=== PATIENT | female | born 1950 | race Caucasian/White ===

== ENCOUNTER 2021-04-11 01:53 | Day surgery (SDC) | payer MEDICARE, SELFPAY ==
[2021-03-23 15:07] VITALS: BMI 18.1
[2021-04-11 07:37] VITALS: BP 142/67; PULSE 55; RESP 16; TEMP 35.7; O2SAT 100; BMI 16.8
[2021-04-11] MEDS: LACTATED RINGERS 1,000 ML 150 ML IV CONT (08:16)
--- NOTE | 2021-04-11 08:28 | WPDGICN ---
Assessment and Plan Assessment and plan (1) Change in bowel habit: Code(s): R19.4 - Change in bowel habit Status: Acute Assessment and Plan: Patient reports a change in her bowel habit more than a year ago. She has and not had a colonoscopy for 20 years. Plan is for screening colonoscopy at this time. Alteration in bowel habit is of uncertain nature. I would suggest trying fiber supplementation such as Metamucil on a daily basis. Further recommendations will be given after endoscopy. GI Consult Note Consult date/time: 04/11/21 08:28 HPI: Ana Paula Calvillo is a 70 year old female Presents for colonoscopy. Patient reports that for greater than 1 year she will spend 2hours in the bathroom in the morning. She states she has large bowel movements associated with frequent urination. She sometimes will have to return to the bathroom several times in the morning to evacuate her bowel. She denies diarrhea. She denies any bleeding. She has had no weight loss. She denies abdominal pain. She has had no fevers. She denies any recent travel. Because of this alteration in her bowel habit she is referred for colonoscopy. She reports that no attempts have been made to modify her diet or give her any treatment. She has an appointment to see the urologist soon. Family history is noncontributory. She denies any family history of colon polyps or cancer. Patient is a relatively poor historian. Her accompanies her and gives her additional historical input. Review of Systems Review of Systems: All systems reviewed & are unremarkable except as noted in HPI and below [facility] Family History Family History (Updated 11/27/17 @ 13:18 by DOCTOR UNKNOWN) Mother Cerebrovascular accident Sibling Family history of malignant neoplasm of breast in first degree relative Social History Social History Smoking packs per day: 1 Smoking cigarettes per day: 20.0 Years smoked: 40 Smoking pack-years: 40.00 Smoking status: Current some day smoker Tobacco type: cigarettes Second hand tobacco smoke exposure: No Alcohol intake: never Substance use: never Substance use type: does not use Living arrangements: with family Spiritual care concerns: No Meds Home Medications and Allergies Home Medications Medication Instructions Recorded Confirmed Type atorvastatin 20 mg PO DAILY 03/23/21 04/11/21 History clonazepam 0.5 mg PO DAILY 03/23/21 04/11/21 History propranolol 80 mg PO DAILY 03/23/21 04/11/21 History Allergies Allergy/AdvReac Type Severity Reaction Status Date / Time No Known Allergies Allergy Verified 04/11/21 07:53 Vital Signs Vital Signs - 24 hr 04/11/21 07:37 Temperature 96.2 F L Pulse Rate 55 L Respiratory Rate 16 Blood Pressure 142/67 H Pulse Oximetry 100 Exam Narrative: Physical exam reveals patient to be alert. Vital signs stable. HEENT exam is unremarkable. Patient is anicteric. Lungs are clear to auscultation and percussion. Heart is without murmur or extra sounds. Abdominal exam bowel sounds are present soft nontender with no organomegaly. Digital external rectal exam is normal.
--- NOTE | 2021-04-11 08:34 | WPDANESEPPF ---
Anes - Initial Pre Proc Eval Procedure: Operation Date: 04/11/21 09:00 Proposed Procedures p Colonoscopy - Heriberto James MD Date/Time: 04/11/21 08:34 Surgeon: Heriberto James MD Pre Op Diagnosis: diarrhea, change in bowel habits Patient Data Age: 70 Gender: F Height: 1.57 m Weight: 41.7 kg Last Vital Signs Temp 96.2 F L 04/11/21 07:37 Pulse 55 L 04/11/21 07:37 Resp 16 04/11/21 07:37 BP 142/67 H 04/11/21 07:37 Pulse Ox 100 04/11/21 07:37 Allergies Allergy/AdvReac Type Severity Reaction Status Date / Time No Known Allergies Allergy Verified 04/11/21 07:53 Home Medications Medication Instructions Recorded Confirmed Type atorvastatin 20 mg PO DAILY 03/23/21 04/11/21 History clonazepam 0.5 mg PO DAILY 03/23/21 04/11/21 History propranolol 80 mg PO DAILY 03/23/21 04/11/21 History Patient hx anesthesia problems: none Family hx anesthesia problems: none Results Review: All pre-operative results and documents have been reviewed as part of the pre-operative evaluation. [facility] Family History Family History (Updated 11/27/17 @ 13:18 by DOCTOR UNKNOWN) Mother Cerebrovascular accident Sibling Family history of malignant neoplasm of breast in first degree relative Social History Social History Smoking packs per day: 1 Smoking cigarettes per day: 20.0 Years smoked: 40 Smoking pack-years: 40.00 Smoking status: Current some day smoker Tobacco type: cigarettes Second hand tobacco smoke exposure: No Alcohol intake: never Substance use: never Substance use type: does not use Living arrangements: with family Spiritual care concerns: No Anes - Eval Final PreProcedure Day of Procedure 04/11/21 08:34 Patient weight: normal Heart: regular rate and rhythm Lungs: clear to auscultation Airway: Mallampati scale class II Neurological: alert and oriented Last oral intake: >/= 8 hours ASA classification: II Emergent: no Anesthetic plan: proceed Anesthesia type and monitoring: general GIVS and standard monitoring Results Review: All pre-operative results and documents have been reviewed as part of the pre-operative evaluation. Informed Consent: The patient's anesthetic plan and its attendant risks and benefits were discussed with the patient/family/POA. Questions were solicited and answers provided to the satisfaction of the patient/family/POA.
[2021-04-11 09:28] VITALS: BP 78/34; PULSE 56; RESP 16; O2SAT 100
[2021-04-11 09:32] VITALS: BP 82/34; PULSE 57; RESP 15; O2SAT 99
[2021-04-11 09:35] VITALS: BP 85/48
[2021-04-11 09:38] VITALS: BP 117/51; PULSE 52; RESP 17; O2SAT 100
[2021-04-11 09:48] VITALS: BP 133/60; PULSE 54; RESP 17; O2SAT 100
== END 2021-04-11 10:10 | disposition home or self-care (01) ==
PROVIDERS: PCP Physician Assistant Medical; Visit Provider Internal Medicine Gastroenterology
PROC: 0DJD8ZZ Inspection of Lower Intestinal Tract, Via Natural or Artificial Opening Endoscopic (ICD-10-PCS; CPT 45378; principal; 2021-04-11 09:00)
DX: Z12.11 Encounter for screening for malignant neoplasm of colon (principal); R19.4 Change in bowel habit; K64.8 Other hemorrhoids; K57.30 Diverticulosis of large intestine without perforation or abscess without bleeding; F17.210 Nicotine dependence, cigarettes, uncomplicated
CPT/HCPCS: G0121; J2704; J7120

== ENCOUNTER 2025-03-30 14:00 | Observation (INO) | payer MEDICARE, SELFPAY ==
[2025-03-30] VITALS (17 sets, daily range): BP systolic 100–155; BP diastolic 48–63; PULSE 63–73; RESP 16–37; TEMP 36.4–37.3; O2SAT 90–100; BMI 18.6; BMI 18.7
--- NOTE | ~2025-03-30 | CT_ITS ---
CT abdomen pelvis w con Clinical History: Anemia . Comparison: None Technique: Axial images lung bases to symphysis pubis IV contrast information not listed in PACS Coronal, sagittal reformats CT images acquired with automatic exposure control for dose reduction DLP: 169 mGy-cm Findings: Lung bases: Scarring. Posterior right basilar rounded atelectasis and effusion. Right middle lobe atelectasis with calcification or clip. Visualized heart and pericardium: Enlarged. Liver: Suspect cirrhosis. Enlarged. Gallbladder: Unremarkable. Spleen: Unremarkable. Pancreas: Unremarkable. Adrenal glands: Unremarkable. Kidneys: Right kidney- No hydronephrosis. No renal stones. Left kidney- No hydronephrosis. No renal stones. Distal esophagus/stomach: Unremarkable. Small bowel loops: Normal caliber and wall thickness. Colon: Diverticula. Normal caliber and wall thickness. Normal RLQ appendix. Nodes: No enlarged nodes. Peritoneum: No ascites. No free air. Urinary bladder: Unremarkable. Uterus: Unremarkable. Adnexa: No masses. Small pelvic free fluid. Bones: No acute bony abnormality. Mild compression deformity S1. Soft tissues: Unremarkable. Aorta: No aneurysm or dissection. Atherosclerotic disease. IVC: Unremarkable. Main portal vein/SMV/splenic vein: Main portal vein dilated. IMPRESSION: 1. No acute findings. 2. Cirrhosis. Reviewed, dictated and finalized at location [employer]
--- NOTE | 2025-03-30 15:23 | ED_ITS ---
HPI - Recheck/Abnormal Lab/Rx General Chief Complaint: Recheck/Abnormal Lab/Rx Stated Complaint: blood levels are low Time Seen by Provider: 03/30/25 15:24 Focused HPI: Patient is a 74 y/o female, with PMH of tremors, who presents to the ED with c/o low hemoglobin. at bedside assisted in providing information. Reports patient has history of anemia in the past, history of bleeding ulcers, has required blood transfusions in the past. reports patient's sister saw the patient yesterday at [employer] and thought she looked paler than usual. Patient's PCP ordered outpatient labs, which were performed today and showed low hgb 5.7. PCP sent in prescriptions for Protonix and iron supplementation, referred patient to the ED for further eval. reports patient's stool has been dark, unsure how long. Denies BRBPR. Patient denies abd pain, N/V, fevers. Denies any other complaints. GENERAL: Elderly, thin, and in no acute distress. HEAD: Normocephalic, atraumatic. CHEST: Clear to auscultation. ?No respiratory distress. HEART: Regular rate and rhythm.? ABD: No tenderness to palpation throughout upper abdomen. Normoactive BS NEURO: ?Alert, diffusely tremulous Patient screened in triage and initial orders placed.? ?Additional care and disposition to be based upon?diagnostic testing and treatment. Source: patient and family Mode of arrival: ambulatory Limitations: no limitations Related Data Home Medications ?Medication ?Instructions ?Recorded ?Confirmed ?Last Taken ?Type atorvastatin 20 mg tablet 20 mg PO DAILY 03/23/2103/1403/29/25 History Held on 07/14/24. Instructions: Patient no longer taking ascorbic acid (vitamin C) 100 mg 100 mg PO DAILY 07/2203/30/25 Unknown History tablet ferrous sulfate 325 mg (65 mg 325 mg PO DAILY 07/22/24 03/30/25 Unknown History iron) tablet Allergies Allergy/AdvReac Type Severity Reaction Status Date / Time prednisone AdvReac Intermediate Irritable Verified 03/30/25 22:38 [facility] Past Medical History Medical History Murmur Left ventricular outflow obstruction, last echo August 2022 OAB (overactive bladder) Glaucoma Rheumatoid arthritis Dyslipidemia Dynamic left ventricular outflow obstruction Anxiety 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 She lives with her . She is retired. She has 3 children. Code status: Full code Smoking packs per day: 1 Smoking cigarettes per day: 20.0 Years smoked: 55 Smoking pack-years: 55.00 Smoking status: Former smoker Tobacco type: cigarettes Second hand tobacco smoke exposure: No Smoking end date: 05/14/22 Alcohol intake: never Drinks per week: 0 Substance use: never Substance use type: does not use Do You Feel Safe in your Home?: Yes Lack of Transportation: No Lack of Food: Never True Current Housing: I Have Housing Concerned About Future Housing: No Difficulty Paying Gas/Electric Bills: No Difficulty Paying for Meds: No Currently Unemployed: No Education: High School Diploma/GED Difficulty w/ Childcare or Family Care: No Living arrangements: with family Occupation/Education: retired Gender identity (if verbalized by the patient): Female Sexual Orientation (if Verbalized by the Patient): Straight or Heterosexual Spiritual care concerns: No Course Vital Signs Vital signs: Vital Signs Temperature 97.9 F 03/30/25 14:46 Pulse Rate 70 03/30/25 14:46 Respiratory Rate 16 03/30/25 14:46 Blood Pressure 116/59 L 03/30/25 14:46 Pulse Oximetry 100 03/30/25 14:46 Oxygen Delivery Room Air 03/30/25 14:46 Temperature 97.1 F L 03/31/25 06:22 Pulse Rate 64 03/31/25 08:27 Respiratory Rate 16 03/31/25 06:22 Blood Pressure 147/68 H 03/31/25 06:22 Pulse Oximetry 94 03/31/25 06:22 Oxygen Delivery Room Air 03/30/25 14:46 MDM - Recheck/Abnormal Lab/Rx MDM Narrative Medical decision making narrative: MSE by LUIS M in triage Lab Data 03/31/25 06:14 03/31/25 06:13 Labs: Lab Results 03/30/25 Range/Units 17:18 WBC 6.1 (4.5-10.0) K/mm3 RBC 2.21 L (4.2-5.4) M/mm3 Hgb 5.5 L* (12.0-15.0) g/dL Hct 19.2 L* (37.0-47.0) % MCV 86.9 (80-100) fl MCH 24.9 L (26-34) pg MCHC 28.6 L (32-36) g/dl RDW 17.2 H (11.5-14.5) % Plt Count 244 (150-375) k/mm3 MPV 10.3 (7.4-10.4) fl Immature Gran % (Auto) Not Reportable Neut % (Auto) Not Reportable Lymph % (Auto) Not Reportable [place] % (Auto) Not Reportable Eos % (Auto) Not Reportable Baso % (Auto) Not Reportable Lymph # (Auto) Not Reportable [place] # (Auto) Not Reportable Eos # (Auto) Not Reportable Baso # (Auto) Not Reportable Abs Immat Gran (auto) Not Reportable Absolute Neuts (auto) Not Reportable Absolute Nucleated RBC Not Reportable Total Counted 100 Neutrophils % (Manual) 80 H (46-73) % Band Neutrophils % 0 (0-6) % Lymphocytes % (Manual) 10.0 L (18-44) % Monocytes % (Manual) 10 H (3-9) % Nucleated RBC % Not Reportable Abs Neuts (Manual) 4.88 (1.3-6.7) K/mm3 Abs Lymphs (Manual) 0.61 L (1.1-4.5) K/mm3 Abs Monocytes (Manual) 0.61 (0.1-0.90) K/mm3 Platelet Estimate Adequate (Adequate) % Immature Plt Fraction 3.7 (0.9-11.2) % Hypochromasia 2+ Anisocytosis 2+ Schistocytes None seen Absolute Retic 0.30 H (0.02-0.10) 10^6/uL Percent Retic 4.49 H (0.7-4.3) % Immature Retic Fraction 28.5 H (3.0-15.9) % Retic Hgb Content 16.3 L (28.2-36.6) pg PT 15.9 H (11.1-14.7) Seconds INR 1.3 APTT 32.1 (22.3-36.8) Seconds Sodium 140 (137-145) mmol/L Potassium 4.0 (3.4-5.0) mmol/L Chloride 106 (98-107) mmol/L Carbon Dioxide 27 (22-30) mmol/L Anion Gap 7 (4-12) mmol/L BUN 26 H (7-17) mg/dL Creatinine 0.86 (0.7-1.0) mg/dL Estim Creat Clear Calc 36 ml/min Estimated GFR > 60 (59 - ) Glucose 102 (65-110) mg/dL Calcium 9.0 (8.4-10.2) mg/dL Iron 26 L (37-170) ug/dL TIBC 401 (261-462) ug/dL % Saturation 6 L (20-50) % Ferritin 7.26 L (11.1-264) ng/mL Total Bilirubin 0.8 (0.2-1.3) mg/dL AST 21 (14-36) U/L ALT 14 (6-35) U/L Alkaline Phosphatase 53 (38-126) U/L Total Protein 6.8 (6.3-8.2) g/dL Albumin 4.1 (3.5-5.1) g/dL Vitamin B12 572.0 (239-931) pg/mL Folate 10.7 (2.76->20) ng/mL Blood Type A Positive Antibody Screen Negative Crossmatch See Detail Discharge Plan Discharge Clinical Impression: Anemia Patient Disposition: Still a Patient Condition: Stable
[2025-03-30 17:34] LABS: Immature Platelet Fraction Pct 3.7 % (0.9-11.2); Immature Reticulocyte Fraction 28.5 % (3.0-15.9); Mean Corpuscular HGB Conc 28.6 g/dl (32-36); Mean Corpuscular Hemoglobin 24.9 pg (26-34); Mean Corpuscular Volume 86.9 fl (80-100); Platelet Count Result 244 k/mm3 (150-375); Red Blood Count 2.21 M/mm3 (4.2-5.4); Reticulocyte Hemoglobin Conten 16.3 pg (28.2-36.6); White Blood Count 6.1 K/mm3 (4.5-10.0)
[2025-03-30 17:41] LABS: Iron 26 ug/dL (37-170)
[2025-03-30 17:43] LABS: Alanine Aminotransferase 14 U/L (6-35); Albumin Level 4.1 g/dL (3.5-5.1); Alkaline Phosphatase 53 U/L (38-126); Anion Gap 7 mmol/L (4-12); Aspartate Amino Transferase 21 U/L (14-36); Bilirubin,Total 0.8 mg/dL (0.2-1.3); Blood Urea Nitrogen 26 mg/dL (7-17); Calcium 9.0 mg/dL (8.4-10.2); Carbon Dioxide 27 mmol/L (22-30); Chloride 106 mmol/L (98-107); Estimated CRCL calculation 36 ml/min; Estimated Glomerular Filt Rate > 60; Glucose 102 mg/dL (65-110); Potassium 4.0 mmol/L (3.4-5.0); Sodium 140 mmol/L (137-145); Total Protein 6.8 g/dL (6.3-8.2)
[2025-03-30 17:45] LABS: INR 1.3; Partial Thromboplastin Time 32.1 Seconds (22.3-36.8); Prothrombin Time 15.9 Seconds (11.1-14.7)
[2025-03-30 17:50] LABS: Percent Iron Saturation 6 % (20-50)
[2025-03-30 18:17] LABS: Ferritin 7.26 ng/mL (11.1-264)
[2025-03-30 18:32] LABS: Hematocrit 19.2 % (37.0-47.0); Hemoglobin 5.5 g/dL (12.0-15.0)
[2025-03-30 18:35] LABS: Reticulocytes Absolute 0.30 10^6/uL (0.02-0.10)
[2025-03-30 18:44] LABS: Lymphocytes Absolute Manual 0.61 K/mm3 (1.1-4.5); Lymphocytes Percent Manual 10.0 % (18-44); Monocytes Absolute Manual 0.61 K/mm3 (0.1-0.90); Monocytes Percent Manual 10 % (3-9); Neutrophils Percent Manual 80 % (46-73); Total Cells Counted 100
[2025-03-30 18:45] LABS: Hypochromasia 2+; Schistocytes None Seen
[2025-03-30 18:46] LABS: Anisocytosis 2+
[2025-03-30 18:51] LABS: Band Neutrophils Percent 0 % (0-6); Neutrophils Absolute Manual 4.88 K/mm3 (1.3-6.7)
[2025-03-30 19:04] LABS: Vitamin B12 572.0 pg/mL (239-931)
--- NOTE | 2025-03-30 19:39 | ED.RECABL ---
HPI - Recheck/Abnormal Lab/Rx General Chief Complaint: Recheck/Abnormal Lab/Rx Stated Complaint: blood levels are low Time Seen by Provider: 03/30/25 15:24 Source: patient and family Mode of arrival: ambulatory Limitations: no limitations Related Data Home Medications ?Medication ?Instructions ?Recorded ?Confirmed ?Last Taken ?Type atorvastatin 20 mg tablet 20 mg PO DAILY 03/23/21 01/23/25 Unknown History Held on 07/14/24. Instructions: Patient no longer taking ascorbic acid (vitamin C) 100 mg 100 mg PO DAILY 07/22/24 01/23/25 Unknown History tablet ferrous sulfate 325 mg (65 mg 325 mg PO DAILY 07/22/24 01/23/25 Unknown History iron) tablet Allergies Allergy/AdvReac Type Severity Reaction Status Date / Time prednisone AdvReac Intermediate Irritable Verified 03/30/25 14:52 [facility] Past Medical History Medical History Murmur Left ventricular outflow obstruction, last echo August 2022 OAB (overactive bladder) Glaucoma Rheumatoid arthritis Dyslipidemia Dynamic left ventricular outflow obstruction Anxiety 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 Confusion Benign essential tremor syndrome Surgical History Surgical History History of hernia repair History of tonsillectomy History of lung surgery S/P ORIF (open reduction internal fixation) fracture right lung due to collapsed lung Family History Family History Mother Cerebrovascular accident Sibling Family history of malignant neoplasm of breast in first degree relative Social History Social History Smoking packs per day: 1 Smoking cigarettes per day: 20.0 Years smoked: 40 Smoking pack-years: 40.00 Smoking status: Current every day smoker Tobacco type: cigarettes Second hand tobacco smoke exposure: No Alcohol intake: never Drinks per week: 0 Substance use: never Substance use type: does not use Do You Feel Safe in your Home?: Yes Lack of Transportation: No Lack of Food: Never True Current Housing: I Have Housing Concerned About Future Housing: No Difficulty Paying Gas/Electric Bills: No Difficulty Paying for Meds: No Currently Unemployed: No Education: High School Diploma/GED Difficulty w/ Childcare or Family Care: No Living arrangements: with family Occupation/Education: retired Gender identity (if verbalized by the patient): Female Sexual Orientation (if Verbalized by the Patient): Straight or Heterosexual Spiritual care concerns: No Course Vital Signs Vital signs: Vital Signs Temperature 36.6 C 03/30/25 14:46 Pulse Rate 70 03/30/25 14:46 Respiratory Rate 16 03/30/25 14:46 Blood Pressure 116/59 L 03/30/25 14:46 Pulse Oximetry 100 03/30/25 14:46 Oxygen Delivery Room Air 03/30/25 14:46 Temperature 36.6 C 03/30/25 14:46 Pulse Rate 72 03/30/25 17:14 Respiratory Rate 16 03/30/25 17:14 Blood Pressure 100/52 L 03/30/25 17:14 Pulse Oximetry 95 03/30/25 17:14 Oxygen Delivery Room Air 03/30/25 14:46 MDM - Recheck/Abnormal Lab/Rx Lab Data 03/30/25 17:18 03/30/25 17:18 Labs: Lab Results 03/30/25 Range/Units 17:18 WBC 6.1 (4.5-10.0) K/mm3 RBC 2.21 L (4.2-5.4) M/mm3 Hgb 5.5 L* (12.0-15.0) g/dL Hct 19.2 L* (37.0-47.0) % MCV 86.9 (80-100) fl MCH 24.9 L (26-34) pg MCHC 28.6 L (32-36) g/dl RDW 17.2 H (11.5-14.5) % Plt Count 244 (150-375) k/mm3 MPV 10.3 (7.4-10.4) fl Immature Gran % (Auto) Not Reportable Neut % (Auto) Not Reportable Lymph % (Auto) Not Reportable [place] % (Auto) Not Reportable Eos % (Auto) Not Reportable Baso % (Auto) Not Reportable Lymph # (Auto) Not Reportable [place] # (Auto) Not Reportable Eos # (Auto) Not Reportable Baso # (Auto) Not Reportable Abs Immat Gran (auto) Not Reportable Absolute Neuts (auto) Not Reportable Absolute Nucleated RBC Not Reportable Total Counted 100 Neutrophils % (Manual) 80 H (46-73) % Band Neutrophils % 0 (0-6) % Lymphocytes % (Manual) 10.0 L (18-44) % Monocytes % (Manual) 10 H (3-9) % Nucleated RBC % Not Reportable Abs Neuts (Manual) 4.88 (1.3-6.7) K/mm3 Abs Lymphs (Manual) 0.61 L (1.1-4.5) K/mm3 Abs Monocytes (Manual) 0.61 (0.1-0.90) K/mm3 Platelet Estimate Adequate (Adequate) % Immature Plt Fraction 3.7 (0.9-11.2) % Hypochromasia 2+ Anisocytosis 2+ Schistocytes None seen Absolute Retic 0.30 H (0.02-0.10) 10^6/uL Percent Retic 4.49 H (0.7-4.3) % Immature Retic Fraction 28.5 H (3.0-15.9) % Retic Hgb Content 16.3 L (28.2-36.6) pg PT 15.9 H (11.1-14.7) Seconds INR 1.3 APTT 32.1 (22.3-36.8) Seconds Sodium 140 (137-145) mmol/L Potassium 4.0 (3.4-5.0) mmol/L Chloride 106 (98-107) mmol/L Carbon Dioxide 27 (22-30) mmol/L Anion Gap 7 (4-12) mmol/L BUN 26 H (7-17) mg/dL Creatinine 0.86 (0.7-1.0) mg/dL Estim Creat Clear Calc 36 ml/min Estimated GFR > 60 (59 - ) Glucose 102 (65-110) mg/dL Calcium 9.0 (8.4-10.2) mg/dL Iron 26 L (37-170) ug/dL TIBC 401 (261-462) ug/dL % Saturation 6 L (20-50) % Ferritin 7.26 L (11.1-264) ng/mL Total Bilirubin 0.8 (0.2-1.3) mg/dL AST 21 (14-36) U/L ALT 14 (6-35) U/L Alkaline Phosphatase 53 (38-126) U/L Total Protein 6.8 (6.3-8.2) g/dL Albumin 4.1 (3.5-5.1) g/dL Vitamin B12 572.0 (239-931) pg/mL Folate 10.7 (2.76->20) ng/mL Blood Type A Positive Antibody Screen Negative Discharge Plan Discharge Patient Language: [place] Prescriptions: No Action ascorbic acid (vitamin C) 100 mg tablet 100 mg PO DAILY Rx Instructions: D/C after 30 days (08/14/24) ferrous sulfate 325 mg (65 mg iron) tablet 325 mg PO DAILY Rx Instructions: D/C after 30 days (08/14/24) propranolol 80 mg tablet 80 mg PO BID Qty: 180 1RF clonazepam 0.5 mg tablet 0.5 mg PO BID Qty: 180 1RF ketoconazole 2 % cream 1 applic topical BID Qty: 60 0RF atorvastatin 20 mg tablet 20 mg PO DAILY pantoprazole [Protonix] 40 mg tablet,delayed release (DR/EC) 40 mg PO DAILY Qty: 30 1RF Follow-up/Referrals: Lyla Maria PA-C [Primary Care Provider, Family Practice]
--- NOTE | 2025-03-30 19:42 | ED.GENADULT ---
HPI - General Adult General Chief complaint: Recheck/Abnormal Lab/Rx Stated complaint: blood levels are low Time Seen by Provider: 03/30/25 15:24 Source: patient and family Mode of arrival: ambulatory Limitations: no limitations History of Present Illness HPI narrative: PATIENT WITH HER FAMILY PHYSICIAN TODAY FOR REGULAR CHECKUP, BLOOD WORKUP SHOWED HEMOGLOBIN IS 5.5 PATIENT REFERRED TO THE ED FOR FURTHER EVALUATION. PATIENT IS ASYMPTOMATIC. DENIES ANY FEVER, CHILLS, NAUSEA, VOMITING, SHORTNESS OF BREATH, DISCOLORED STOOL,. PATIENT DID NOT ON ANTI-PLATELET OR ANTICOAGULANT MEDICATION. PATIENT HAD BLOOD TRANSFUSION OCTOBER 2023 SECONDARY TO ANEMIA OF UNKNOWN ETIOLOGY PATIENT HAD ANOTHER BLOOD TRANSFUSION JUNE THIS YEAR BECAUSE OF ANEMIA OF UNKNOWN ETIOLOGY. PATIENT IS TELLING ME THAT SHE UNDERWENT EGD AND COLONOSCOPY WITHOUT SPECIFIC DIAGNOSIS. Related Data Home Medications ?Medication ?Instructions ?Recorded ?Confirmed ?Last Taken ?Type atorvastatin 20 mg tablet 20 mg PO DAILY 03/23/21 03/30/25 03/29/25 History Held on 07/14/24. Instructions: Patient no longer taking ascorbic acid (vitamin C) 100 mg 100 mg PO DAILY 07/22/24 03/30/25 Unknown History tablet ferrous sulfate 325 mg (65 mg 325 mg PO DAILY 07/22/24 03/30/25 Unknown History iron) tablet Allergies Allergy/AdvReac Type Severity Reaction Status Date / Time prednisone AdvReac Intermediate Irritable Verified 03/30/25 14:52 Review of Systems Review of Systems: All systems reviewed & are unremarkable except as noted in HPI and below PMFSH Past Medical History Medical History Murmur Left ventricular outflow obstruction, last echo August 2022 OAB (overactive bladder) Glaucoma Rheumatoid arthritis Dyslipidemia Dynamic left ventricular outflow obstruction Anxiety 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 Confusion Benign essential tremor syndrome Surgical History Surgical History History of hernia repair History of tonsillectomy History of lung surgery S/P ORIF (open reduction internal fixation) fracture right lung due to collapsed lung Family History Family History Mother Cerebrovascular accident Sibling Family history of malignant neoplasm of breast in first degree relative Social History Social History Smoking packs per day: 1 Smoking cigarettes per day: 20.0 Years smoked: 40 Smoking pack-years: 40.00 Smoking status: Current every day smoker Tobacco type: cigarettes Second hand tobacco smoke exposure: No Alcohol intake: never Drinks per week: 0 Substance use: never Substance use type: does not use Do You Feel Safe in your Home?: Yes Lack of Transportation: No Lack of Food: Never True Current Housing: I Have Housing Concerned About Future Housing: No Difficulty Paying Gas/Electric Bills: No Difficulty Paying for Meds: No Currently Unemployed: No Education: High School Diploma/GED Difficulty w/ Childcare or Family Care: No Living arrangements: with family Occupation/Education: retired Gender identity (if verbalized by the patient): Female Sexual Orientation (if Verbalized by the Patient): Straight or Heterosexual Spiritual care concerns: No Exam Narrative: GENERAL APPEARANCE: WELL-DEVELOPED, WELL-NOURISHED SKIN: PALE HEAD: NORMOCEPHALIC, NONTRAUMATIC EYES: CLEAR CONJUNCTIVA ENT: OROPHARYNX NORMAL, EARS NORMAL, NOSE NORMAL NECK: SUPPLE, NONTENDER CHEST AND RESPIRATORY: AIRWAY PATENT, NO RESPIRATORY DISTRESS, NO ACCESSORY MUSCLE USE HEART: REGULAR RATE/RHYTHM ABDOMEN: SOFT, NONTENDER, NO ORGANOMEGALY, QUIET BOWEL SOUNDS, GUAIAC STOOL IS NEGATIVE VASCULAR: NORMAL PERIPHERAL PULSES, NORMAL CAPILLARY REFILL. MUSCULOSKELETAL: NORMAL RANGE OF MOTION, NONTENDER BACK NEUROLOGIC: ALERT AND ORIENTED ?3, DECORATING INSTRUCTOR IS NORMAL TESTED, NO GROSS MOTOR DEFICIT Course Consultations Consultation #1: DR PRADO Date: 03/30/25 Vital Signs Vital signs: Vital Signs Temperature 36.6 C 03/30/25 14:46 Pulse Rate 70 03/30/25 14:46 Respiratory Rate 16 03/30/25 14:46 Blood Pressure 116/59 L 03/30/25 14:46 Pulse Oximetry 100 03/30/25 14:46 Oxygen Delivery Room Air 03/30/25 14:46 Temperature 37.3 C 03/30/25 20:43 Pulse Rate 70 03/30/25 20:46 Respiratory Rate 29 H 03/30/25 20:46 Blood Pressure 116/59 L 03/30/25 20:46 Pulse Oximetry 97 03/30/25 20:46 Oxygen Delivery Room Air 03/30/25 14:46 Medical Decision Making MDM Narrative Medical decision making narrative: DIFFERENTIAL DIAGNOSIS INCLUDE GI BLEED, BONE MARROW DISORDER, DIAGNOSIS ANEMIA TRANSFUSE 2 UNITS OF BLOOD ADMIT TO HOSPITALIST Differential Diagnosis Differential Diagnosis: ABOVE Vital Signs Vital Signs: Vital Signs Temperature 36.6 C 03/30/25 14:46 Pulse Rate 70 03/30/25 14:46 Respiratory Rate 16 03/30/25 14:46 Blood Pressure 116/59 L 03/30/25 14:46 Pulse Oximetry 100 03/30/25 14:46 Oxygen Delivery Room Air 03/30/25 14:46 Temperature 37.3 C 03/30/25 20:43 Pulse Rate 70 03/30/25 20:46 Respiratory Rate 29 H 03/30/25 20:46 Blood Pressure 116/59 L 03/30/25 20:46 Pulse Oximetry 97 03/30/25 20:46 Oxygen Delivery Room Air 03/30/25 14:46 Lab Data 03/30/25 17:18 03/30/25 17:18 Labs: Lab Results 03/30/25 Range/Units 17:18 WBC 6.1 (4.5-10.0) K/mm3 RBC 2.21 L (4.2-5.4) M/mm3 Hgb 5.5 L* (12.0-15.0) g/dL Hct 19.2 L* (37.0-47.0) % MCV 86.9 (80-100) fl MCH 24.9 L (26-34) pg MCHC 28.6 L (32-36) g/dl RDW 17.2 H (11.5-14.5) % Plt Count 244 (150-375) k/mm3 MPV 10.3 (7.4-10.4) fl Immature Gran % (Auto) Not Reportable Neut % (Auto) Not Reportable Lymph % (Auto) Not Reportable [place] % (Auto) Not Reportable Eos % (Auto) Not Reportable Baso % (Auto) Not Reportable Lymph # (Auto) Not Reportable [place] # (Auto) Not Reportable Eos # (Auto) Not Reportable Baso # (Auto) Not Reportable Abs Immat Gran (auto) Not Reportable Absolute Neuts (auto) Not Reportable Absolute Nucleated RBC Not Reportable Total Counted 100 Neutrophils % (Manual) 80 H (46-73) % Band Neutrophils % 0 (0-6) % Lymphocytes % (Manual) 10.0 L (18-44) % Monocytes % (Manual) 10 H (3-9) % Nucleated RBC % Not Reportable Abs Neuts (Manual) 4.88 (1.3-6.7) K/mm3 Abs Lymphs (Manual) 0.61 L (1.1-4.5) K/mm3 Abs Monocytes (Manual) 0.61 (0.1-0.90) K/mm3 Platelet Estimate Adequate (Adequate) % Immature Plt Fraction 3.7 (0.9-11.2) % Hypochromasia 2+ Anisocytosis 2+ Schistocytes None seen Absolute Retic 0.30 H (0.02-0.10) 10^6/uL Percent Retic 4.49 H (0.7-4.3) % Immature Retic Fraction 28.5 H (3.0-15.9) % Retic Hgb Content 16.3 L (28.2-36.6) pg PT 15.9 H (11.1-14.7) Seconds INR 1.3 APTT 32.1 (22.3-36.8) Seconds Sodium 140 (137-145) mmol/L Potassium 4.0 (3.4-5.0) mmol/L Chloride 106 (98-107) mmol/L Carbon Dioxide 27 (22-30) mmol/L Anion Gap 7 (4-12) mmol/L BUN 26 H (7-17) mg/dL Creatinine 0.86 (0.7-1.0) mg/dL Estim Creat Clear Calc 36 ml/min Estimated GFR > 60 (59 - ) Glucose 102 (65-110) mg/dL Calcium 9.0 (8.4-10.2) mg/dL Iron 26 L (37-170) ug/dL TIBC 401 (261-462) ug/dL % Saturation 6 L (20-50) % Ferritin 7.26 L (11.1-264) ng/mL Total Bilirubin 0.8 (0.2-1.3) mg/dL AST 21 (14-36) U/L ALT 14 (6-35) U/L Alkaline Phosphatase 53 (38-126) U/L Total Protein 6.8 (6.3-8.2) g/dL Albumin 4.1 (3.5-5.1) g/dL Vitamin B12 572.0 (239-931) pg/mL Folate 10.7 (2.76->20) ng/mL Blood Type A Positive Antibody Screen Negative Crossmatch See Detail Critical Care Time Critical Care Time Critical Care Time: No Discharge Plan Discharge Clinical Impression: Anemia Patient Disposition: Still a Patient Condition: Stable Patient Language: Sinhala Prescriptions: No Action ascorbic acid (vitamin C) 100 mg tablet 100 mg PO DAILY Rx Instructions: D/C after 30 days (08/14/24) ferrous sulfate 325 mg (65 mg iron) tablet 325 mg PO DAILY Rx Instructions: D/C after 30 days (08/14/24) propranolol 80 mg tablet 80 mg PO BID Qty: 180 1RF clonazepam 0.5 mg tablet 0.5 mg PO BID Qty: 180 1RF ketoconazole 2 % cream 1 applic topical BID Qty: 60 0RF atorvastatin 20 mg tablet 20 mg PO DAILY pantoprazole [Protonix] 40 mg tablet,delayed release (DR/EC) 40 mg PO DAILY Qty: 30 1RF Follow-up/Referrals: Lyla Maria PA-C [Primary Care Provider, [facility]]
[2025-03-30] MEDS: SODIUM CHLORIDE 0.9% IV 250 ML 30 ML IV CONT (19:54)
[2025-03-30] MEDS: TUBING, BLOOD SET 1 EACH XX (20:04)
--- NOTE | 2025-03-30 21:42 | WPCEDHO ---
ED Hand Off Checklist All vitals saved:Y IV Site documented:Y All med administrations documented:Y Triage Note Triage Note Pt to ED with who states 03/30/25 19:58 pt is low on blood. reports pt hgb is 5.7 states she had bloodwork done this morning at [facility] in [place]. Pt reports she has had to have blood transfusions in the past. Pt has no complaints on arrival. Agree with triage note. Allergies prednisone Adverse Reaction (Intermediate, Verified 03/30/25 14:52) Irritable Family History (Last Reviewed 03/30/25 @ 21:12 by Calos Gomez MD) Mother Cerebrovascular accident Sibling Family history of malignant neoplasm of breast in first degree relative Active Medications including assessments/comments Sodium Chloride (Normal Saline Iv) 250 mls @ 30 mls/hr IV CONT .Q8H20M STA Stop: 03/31/25 03:59 Last Admin: 03/30/25 19:54 Dose: 30 mls/hr Documented By: CHRIS Infusion/Titration Document 03/30/25 19:54 CHRIS (Rec: 03/30/25 19:54 AMH [id number]) Intake IV Site Peripheral Access Left Cephalic Container Volume 250 Waste Amount 0 Dosing Infusion Rate 30 Cumulative Dose Not Applicable Increase/Decrease Started Elapsed Time Elapsed Time ( 0m minutes) Administered/Completed Medications Discontinued Medications IV Miscellaneous Supplies (Tubing, Blood Set) Confirm Administered Dose 1 each XX .STK-MED ONE Stop: 03/30/25 19:55 Last Admin: 03/30/25 20:04 Dose: 1 each Documented By: CHRIS Interventions/Assessments General Assessment Start: 03/30/25 14:01 Freq: Status: Active Protocol: Document 03/30/25 19:58 CHRIS (Rec: 03/30/25 19:59 AMH [id number]) GA Gastrointestinal Assessment Gastrointestinal Yes Assessment WNL Gastrointestinal Pt states she had a scope in June and was told that Additional Comments it was inconclusive. IV / Saline Lock, Insert Start: 03/30/25 14:01 Freq: Status: Active Protocol: Document 03/30/25 17:20 FRANSISCO (Rec: 03/30/25 17:20 FRANSISCO [id number]) IV Assessment Peripheral Access Left Cephalic IV Catheter Access Initiated IV Insertion Date 03/30/25 IV Insertion Time 17:20 Catheter Gauge 20 IV Insertion 1 Attempts Ultrasound Used for No Placement IV Site Assessment WNL IV Care and WNL,Dressing Applied, Dated, Timed, and Initialed Maintenance Last Vital Signs Temperature 99.1 F 03/30/25 20:43 Pulse Rate 67 03/30/25 21:30 Respiratory Rate 27 H 03/30/25 21:30 Pulse Oximetry 98 03/30/25 21:30 Blood Pressure 121/60 03/30/25 21:01 Blood Pressure Mean 76 03/30/25 21:01 Oxygen Delivery Room Air 03/30/25 14:46 Weight 46.4 kg 03/30/25 14:46 Last Result - Abnormals Only RBC 2.21 M/mm3 (4.2-5.4) L 03/30/25 17:18 Hgb 5.5 g/dL (12.0-15.0) L* 03/30/25 17:18 Hct 19.2 % (37.0-47.0) L* 03/30/25 17:18 MCH 24.9 pg (26-34) L 03/30/25 17:18 MCHC 28.6 g/dl (32-36) L 03/30/25 17:18 RDW 17.2 % (11.5-14.5) H 03/30/25 17:18 Neutrophils % (Manual) 80 % (46-73) H 03/30/25 17:18 Lymphocytes % (Manual) 10.0 % (18-44) L 03/30/25 17:18 Monocytes % (Manual) 10 % (3-9) H 03/30/25 17:18 Abs Lymphs (Manual) 0.61 K/mm3 (1.1-4.5) L 03/30/25 17:18 Absolute Retic 0.30 10^6/uL (0.02-0.10) H 03/30/25 17:18 Percent Retic 4.49 % (0.7-4.3) H 03/30/25 17:18 Immature Retic Fraction 28.5 % (3.0-15.9) H 03/30/25 17:18 Retic Hgb Content 16.3 pg (28.2-36.6) L 03/30/25 17:18 PT 15.9 Seconds (11.1-14.7) H 03/30/25 17:18 BUN 26 mg/dL (7-17) H 03/30/25 17:18 Iron 26 ug/dL (37-170) L 03/30/25 17:18 % Saturation 6 % (20-50) L 03/30/25 17:18 Ferritin 7.26 ng/mL (11.1-264) L 03/30/25 17:18 Crossmatch See Detail 03/30/25 17:18 Most Recent Suicide Severity Rating Suicide Severity Rating NO RISK INDICATED 03/30/25 19:58
--- NOTE | 2025-03-30 22:14 | ADMGEN ---
This patient, Ana Paula Calvillo, was admitted to [facility] Surg Room 307-02. Patient/family oriented to hospital policies and general routines including ID bracelet, bed and alarms, visiting hours, pain management, procedures, bathroom and other care routines, personal items, smoking policy, room service/diet, and visiting hours. Information on how to activate the Rapid Response Team has been discussed. Patient/Family are encouraged to report perceived risks to care and to ask questions if they do not understand what they are told or what they should do.
[2025-03-31] VITALS (10 sets, daily range): BP systolic 123–158; BP diastolic 53–75; PULSE 54–74; RESP 16–18; TEMP 36.2–37; O2SAT 94–97
[2025-03-31 03:32] LABS: Hematocrit 27.6 % (37.0-47.0); Hemoglobin 8.5 g/dL (12.0-15.0)
--- NOTE | 2025-03-31 04:17 | PC.NURSE ---
Pt received 1 unit of PRBC in ER came to 3 med surg and received 1 unit. blood has been stopped and H&H rechecked and currently 8.5. blood administration tolerated well.
--- NOTE | 2025-03-31 06:04 | PM.IMHP ---
H&P: HPI History of Present Illness Date/Time: 03/31/25 06:04 Chief Complaint: Low blood levels. Narrative: This is a 74-year-old female patient who has a history of anemia. She stated that she has already had 2 transfusions in the past. She has had a full GI workup and stated that she only has hemorrhoids. She denies any blood in her stool. She denies any abnormal bleeding. The patient stated that some a noticed that she was pale and that she needed to see her primary care doctor. She is asymptomatic. The patient's hemoglobin was reported as 5.5 and the patient was referred to the emergency room for further evaluation. The patient is not on any anti coagulation or any coagulation. She had of blood transfusion 2 2023 due to anemia of unknown etiology. She also had of blood transfusion June of this year. On her lab work here her H&H is 5.5 and 19.2. She had 2 units of packed red blood cells ordered in the emergency room and she was given 1 in the ER. The 2nd 1 was given up on the nursing floor. Her absolute retic is 0.30 percentage retic is 4.49. Her ferritin is low at 7.26. Her blood pressure has been within normal limits. Her heart rate has been in 50s. It was reported that the patient at was negative for Hemoccult blood. Patient is being admitted to observation status on the date of service of 03/31/2025. Review of Systems Constitutional: Constitutional: Reports as per HPI and Reports no additional constitutional complaints Eyes: Eyes: Reports as per HPI and Reports no additional eye complaints ENT: Reports system reviewed and no additional complaints, except as documented and Reports Normal hearing present Cardiovascular: Cardiovascular: Reports no additional cardiovascular complaints Respiratory: Respiratory: Reports as per HPI and Reports no additional respiratory complaints Gastrointestinal: Gastrointestinal: Reports as per HPI and Reports no additional gastrointestinal complaints Genitourinary: Genitourinary: Reports no additional female genitourinary complaints Musculoskeletal: Musculoskeletal: Reports no additional musculoskeletal complaints Integumentary/Breasts: Skin/Breast: Reports system reviewed and no additional complaints, except as docu Neurologic: Reports system reviewed and no additional complaints, except as documented and Reports Normal hearing present Psychiatric: Psychiatric: Reports no additional psychiatric complaints and Reports as per HPI Hematologic/Lymphatic: Hematologic/Lymphatic: Reports no additional hematologic/lymphatic complaints Allergic/Immunologic: Allergic/Immunologic: Reports no additional allergic/immunologic complaints [facility] Past Medical History Medical History Murmur Left ventricular outflow obstruction, last echo August 2022 OAB (overactive bladder) Glaucoma Rheumatoid arthritis Dyslipidemia Dynamic left ventricular outflow obstruction Anxiety 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 She lives with her . She is retired. She has 3 children. Code status: Full code Smoking packs per day: 1 Smoking cigarettes per day: 20.0 Years smoked: 55 Smoking pack-years: 55.00 Smoking status: Former smoker Tobacco type: cigarettes Second hand tobacco smoke exposure: No Smoking end date: 05/14/22 Alcohol intake: never Drinks per week: 0 Substance use: never Substance use type: does not use Do You Feel Safe in your Home?: Yes Lack of Transportation: No Lack of Food: Never True Current Housing: I Have Housing Concerned About Future Housing: No Difficulty Paying Gas/Electric Bills: No Difficulty Paying for Meds: No Currently Unemployed: No Education: High School Diploma/GED Difficulty w/ Childcare or Family Care: No Living arrangements: with family Occupation/Education: retired Gender identity (if verbalized by the patient): Female Sexual Orientation (if Verbalized by the Patient): Straight or Heterosexual Spiritual care concerns: No Meds Home Medications and Allergies Home Medications ?Medication ?Instructions ?Recorded ?Confirmed ?Type atorvastatin 20 mg tablet 20 mg PO DAILY 03/23/21 03/30/25 History Held on 07/14/24. Instructions: Patient no longer taking ascorbic acid (vitamin C) 100 mg 100 mg PO DAILY 07/22/24 03/30/25 History tablet ferrous sulfate 325 mg (65 mg 325 mg PO DAILY 07/22/24 03/30/25 History iron) tablet clonazepam 0.5 mg tablet 0.5 mg PO BID #180 tabs 01/23/25 03/30/25 Rx ketoconazole 2 % topical cream 1 applic topical BID #60 grams 01/23/25 03/30/25 Rx Held on 03/30/25. Instructions: Patient no longer taking propranolol 80 mg tablet 80 mg PO BID #180 tabs 01/23/25 03/30/25 Rx pantoprazole 40 mg tablet,delayed 40 mg PO DAILY #30 tabs 03/30/25 03/30/25 Rx release (Protonix) Allergies Allergy/AdvReac Type Severity Reaction Status Date / Time prednisone AdvReac Intermediate Irritable Verified 03/30/25 22:38 Vital Signs Vital Signs - 24 hr 03/30/25 14:46 03/30/25 17:14 03/30/25 19:57 Temperature 97.9 F 98.5 F Pulse Rate 70 72 71 Respiratory Rate 16 16 26 H Blood Pressure 116/59 L 100/52 L 115/54 L Pulse Oximetry 100 95 96 Oxygen Delivery Room Air 03/30/25 20:01 03/30/25 20:16 03/30/25 20:17 Temperature 98.6 F Pulse Rate 69 73 71 Respiratory Rate 20 17 20 Blood Pressure 127/55 L 135/61 135/61 Pulse Oximetry 95 95 96 Oxygen Delivery 03/30/25 20:43 03/30/25 20:44 03/30/25 20:46 Temperature 99.1 F Pulse Rate 73 71 70 Respiratory Rate 21 H 31 H 29 H Blood Pressure 122/53 L 122/53 L 116/59 L Pulse Oximetry 96 96 97 Oxygen Delivery 03/30/25 20:47 03/30/25 21:00 03/30/25 21:01 Temperature Pulse Rate 71 68 65 Respiratory Rate 30 H 37 H 33 H Blood Pressure 121/60 Pulse Oximetry 94 100 90 Oxygen Delivery 03/30/25 21:17 03/30/25 21:30 03/30/25 21:47 Temperature 98.9 F Pulse Rate 63 67 63 Respiratory Rate 22 H 27 H 24 H Blood Pressure 123/63 Pulse Oximetry 97 98 95 Oxygen Delivery 03/30/25 23:09 03/30/25 23:43 03/31/25 00:02 Temperature 97.6 F 97.6 F 97.6 F Pulse Rate 65 65 74 Respiratory Rate 18 18 18 Blood Pressure 155/48 H 155/48 H 128/57 L Pulse Oximetry 96 96 96 Oxygen Delivery 03/31/25 01:02 03/31/25 02:02 03/31/25 03:02 Temperature 97.1 F L 97.4 F L 97.3 F L Pulse Rate 55 L 59 L 54 L Respiratory Rate 18 16 16 Blood Pressure 158/53 H 150/75 H 148/62 H Pulse Oximetry 96 94 95 Oxygen Delivery Exam Const: General: cooperative, healthy appearing, comfortable, no acute distress, well developed, awake, Physically active, average body habitus and well nourished Nutritional Appearance: average body habitus and well nourished Orientation/consciousness: oriented to person, oriented to place, oriented to time and patient oriented x3 Limitations: no limitations HENMT: Head: normal to inspection Ears: hearing grossly normal bilaterally Eyes: General: appearance normal, both eyes and all related structures Alignment and Position: alignment normal Eyelids: eyelids normal Neck: Neck: normal visual inspection and full ROM Chest: Chest palpation & inspection: normal inspection of the chest Resp: Effort & Inspection: normal respiratory effort Auscultation: clear to auscultation bilaterally Percussion: percussion normal Cardio: Rate: regular rate Rhythm: regular rhythm Heart sounds: S1 normal heart sound present, S2 normal heart sound present and Murmur heart sound present diastolic soft Peripheral pulses: Peripheral pulses 2+ throughout Other: Best heard at the left upper sternal border. GI: Inspection: normal to inspection Percussion: Yes normal to percussion Auscultation: normal bowel sounds Rectal Exam: deferred Skin: General skin exam: normal color Lesions: no lesions Rashes: no rashes Trauma: no lacerations or abrasions Wounds: no wounds Hair: normal Nails: normal Neuro: General: oriented to person, oriented to place, oriented to time and patient oriented x3 Motor exam (neuro): 5/5 motor strength present throughout Sensory Exam: normal sensation Extrem: General: normal to inspection Right upper extremity: normal to inspection and shoulder/upper arm Left upper extremity: normal to inspection and shoulder/upper arm Right lower extremity: normal to inspection Left lower extremity: normal to inspection Psych: Appearance: grossly normal Mental Status: mental status grossly normal Speech and movement: Normal speech and movement present Affect: normal affect Attitude: cooperative Thought process: Normal thought process present Thought content: Yes Normal thought content present Insight: Good insight present (Psych) Judgement: Good judgement present (Psych) H&P: Results Labs Labs: Short CBC 03/30/25 03/31/25 Range/Units 17:18 03:26 WBC 6.1 (4.5-10.0) K/mm3 Hgb 5.5 L* 8.5 L D (12.0-15.0) g/dL Hct 19.2 L* 27.6 L (37.0-47.0) % Plt Count 244 (150-375) k/mm3 BMP 03/30/25 17:18 Sodium 140 Potassium 4.0 Chloride 106 Carbon Dioxide 27 BUN 26 H Creatinine 0.86 Glucose 102 Calcium 9.0 Liver Function 03/30/25 Range/Units 17:18 Total Bilirubin 0.8 (0.2-1.3) mg/dL AST 21 (14-36) U/L ALT 14 (6-35) U/L Alkaline Phosphatase 53 (38-126) U/L Albumin 4.1 (3.5-5.1) g/dL Imaging CT scan - abdomen: Radiologist's impression: Impressions Abdomen/Pelvis CT 03/31/25 08:58 IMPRESSION: 1. No acute findings. 2. Cirrhosis. Assessment and Plan Assessment and plan (1) Anemia: Code(s): D64.9 - Anemia, unspecified Status: Acute Assessment and Plan: -the patient's H&H was 5.5 and 19.2. -the patient was given 2 units of packed red blood cells. -her H&H did come up to 8.5 and 27.6. -the patient denies any blood in her stool. However her she stated that she does have hemorrhoids that do bleed occasionally. -er physician stated that he did call GI however the patient had previously had a GI workup and was negative. GI said that they would be able to come on board if we are unable to find any other source of anemia. -hematology/oncology has been consulted for further recommendations. -anemia panel has been ordered. -she was started on ferrous sulfate. -the patient had been on Protonix at 1 time but is no longer taking it. (2) Rheumatoid arthritis: Code(s): M06.9 - Rheumatoid arthritis, unspecified Status: Acute Assessment and Plan: -the patient does not appear to be on any medication for her rheumatoid arthritis. (3) Dyslipidemia: Code(s): E78.5 - Hyperlipidemia, unspecified Status: Acute Assessment and Plan: -patient is not on medication for this at this time. It looks like the patient had been on atorvastatin but is no longer taking it. (4) Anxiety: Code(s): F41.9 - Anxiety disorder, unspecified Status: Acute Assessment and Plan: -continue with her clonazepam. Plan The patient is also on propanolol for a heart murmur. Quality VTE Prophylaxis VTE prophylaxis: mechanical ordered
[2025-03-31 06:21] LABS: Hematocrit 29.5 % (37.0-47.0); Hemoglobin 9.0 g/dL (12.0-15.0)
[2025-03-31 06:35] LABS: Immature Granulocyte Percent A 0.4 % (0-0.5); Lymphocytes Absolute Auto 1.35 K/mm3 (0.9-3.2); Mean Corpuscular HGB Conc 30.6 g/dl (32-36); Mean Corpuscular Hemoglobin 26.3 pg (26-34); Mean Corpuscular Volume 85.8 fl (80-100); Nucleated Red Blood Cells Absolute Auto 0.020 K/mm3 (0.0-0.012); Nucleated Red Blood Cells Perc 0.3 % (0.0-0.2); Platelet Count Result 194 k/mm3 (150-375); Red Blood Count 3.39 M/mm3 (4.2-5.4); White Blood Count 6.7 K/mm3 (4.5-10.0)
[2025-03-31 06:51] LABS: Anion Gap 6 mmol/L (4-12); Bilirubin,Total 2.8 mg/dL (0.2-1.3); Blood Urea Nitrogen 19 mg/dL (7-17); Calcium 8.5 mg/dL (8.4-10.2); Carbon Dioxide 22 mmol/L (22-30); Chloride 109 mmol/L (98-107); Estimated CRCL calculation 42 ml/min; Estimated Glomerular Filt Rate > 60; Glucose 88 mg/dL (65-110); Potassium 4.0 mmol/L (3.4-5.0); Sodium 137 mmol/L (137-145)
[2025-03-31 07:08] LABS: Transferrin 294 mg/dL (206-381)
[2025-03-31 07:11] LABS: Iron 96 ug/dL (37-170)
--- NOTE | 2025-03-31 07:20 | P.PNIM_ITS ---
Progress Note: A&P Assessment and Plan (1) Anemia: Code(s): D64.9 - Anemia, unspecified Status: Acute Assessment and Plan: -the patient's H&H was 5.5 and 19.2. -the patient was given 2 units of packed red blood cells. -her H&H did come up to 8.5 and 27.6. -the patient denies any blood in her stool. However she stated that she does have hemorrhoids that do bleed occasionally. -er physician stated that he did call GI however the patient had previously had a GI workup and was negative. GI said that they would be able to come on board if we are unable to find any other source of anemia. -hematology/oncology has been consulted for further recommendations. -anemia panel has been ordered. -she was started on ferrous sulfate. -the patient had been on Protonix at 1 time but is no longer taking it. 03/31: H/H: 9.0/29.5 (2) Dyslipidemia: Code(s): E78.5 - Hyperlipidemia, unspecified Status: Acute Assessment and Plan: -patient is not on medication for this at this time. It looks like the patient had been on atorvastatin but is no longer taking it. (3) Anxiety: Code(s): F41.9 - Anxiety disorder, unspecified Status: Acute Assessment and Plan: -continue with her clonazepam. (4) Murmur: Code(s): R01.1 - Cardiac murmur, unspecified Status: Acute Assessment and Plan: Present on examination -Continue propranolol 80mg BID (5) Cirrhosis: Code(s): K74.60 - Unspecified cirrhosis of liver Status: Acute Assessment and Plan: -Seen via CT -LFTs WDL, bili elevated -Hep A, B, C & lipid panel labs drawn -denies excessive ETOH use current and history Plan Trend H&H, hematology consult, cirrhosis workup Time Spent With Patient Time: 40 Subjective Date/time seen: 03/31/25 1141 Interval history: Patient resting comfortably in bed upon my arrival to room. Patient denying any symptoms, states that she was not symptomatic to anemia whenever she came to the ED other than being pale. Informed her of the new cirrhosis diagnosis the CT and further workup. Reports that her , Gavin, is her caregiver. All questions addressed. Review of Systems Constitutional: Constitutional: Reports as per HPI and Reports no additional constitutional complaints Eyes: Eyes: Reports as per HPI and Reports no additional eye complaints ENT: Reports system reviewed and no additional complaints, except as documented and Reports Normal hearing present Cardiovascular: Cardiovascular: Reports no additional cardiovascular complaints Respiratory: Respiratory: Reports as per HPI and Reports no additional respiratory complaints Gastrointestinal: Gastrointestinal: Reports as per HPI and Reports no additional gastrointestinal complaints Genitourinary: Genitourinary: Reports no additional female genitourinary complaints Musculoskeletal: Musculoskeletal: Reports no additional musculoskeletal complaints Integumentary/Breasts: Skin/Breast: Reports system reviewed and no additional complaints, except as docu Neurologic: Reports system reviewed and no additional complaints, except as documented and Reports Normal hearing present Psychiatric: Psychiatric: Reports no additional psychiatric complaints and Reports as per HPI Hematologic/Lymphatic: Hematologic/Lymphatic: Reports no additional hematologic/lymphatic complaints Allergic/Immunologic: Allergic/Immunologic: Reports no additional allergic/immunologic complaints Exam Const: General: cooperative, healthy appearing, comfortable, no acute distress, well developed, awake, Physically active, average body habitus and well nourished Nutritional Appearance: average body habitus and well nourished Orientation/consciousness: oriented to person, oriented to place, oriented to time and patient oriented x3 Limitations: no limitations HENMT: Head: normal to inspection Ears: hearing grossly normal bilaterally Eyes: General: appearance normal, both eyes and all related structures Alignment and Position: alignment normal Eyelids: eyelids normal Neck: Neck: normal visual inspection and full ROM Carotids: no bruits Chest: Chest palpation & inspection: normal inspection of the chest Resp: Effort & Inspection: normal respiratory effort Auscultation: clear to auscultation bilaterally Percussion: percussion normal Cardio: Rate: regular rate Rhythm: regular rhythm Heart sounds: S1 normal heart sound present, S2 normal heart sound present and Murmur heart sound present diastolic soft Peripheral pulses: Peripheral pulses 2+ throughout Other: Best heard at the left upper sternal border. GI: Inspection: normal to inspection Auscultation: normal bowel sounds Rectal Exam: deferred Skin: General skin exam: normal color Lesions: no lesions Rashes: no rashes Trauma: no lacerations or abrasions Wounds: no wounds Hair: normal Nails: normal Neuro: General: oriented to person, oriented to place, oriented to time and patient oriented x3 Cranial nerves: Yes Normal hearing present Motor exam (neuro): Normal motor muscle tone present throughout Sensory Exam: normal sensation Other: Essential tremor Extrem: General: normal to inspection Right upper extremity: normal to inspection and shoulder/upper arm Left upper extremity: normal to inspection and shoulder/upper arm Right lower extremity: normal to inspection Left lower extremity: normal to inspection Psych: Appearance: grossly normal Mental Status: mental status grossly normal Speech and movement: Normal speech and movement present Affect: normal affect Attitude: cooperative Thought process: Normal thought process present Insight: Good insight present (Psych) Judgement: Good judgement present (Psych) Objective Data Vital Signs Vital Signs: Vital Signs - 24 hr 03/30/25 14:46 03/30/25 17:14 03/30/25 19:57 Temperature 97.9 F 98.5 F Pulse Rate 70 72 71 Respiratory Rate 16 16 26 H Blood Pressure 116/59 L 100/52 L 115/54 L Pulse Oximetry 100 95 96 Oxygen Delivery Room Air 03/30/25 20:01 03/30/25 20:16 03/30/25 20:17 Temperature 98.6 F Pulse Rate 69 73 71 Respiratory Rate 20 17 20 Blood Pressure 127/55 L 135/61 135/61 Pulse Oximetry 95 95 96 Oxygen Delivery 03/30/25 20:43 03/30/25 20:44 03/30/25 20:46 Temperature 99.1 F Pulse Rate 73 71 70 Respiratory Rate 21 H 31 H 29 H Blood Pressure 122/53 L 122/53 L 116/59 L Pulse Oximetry 96 96 97 Oxygen Delivery 03/30/25 20:47 03/30/25 21:00 03/30/25 21:01 Temperature Pulse Rate 71 68 65 Respiratory Rate 30 H 37 H 33 H Blood Pressure 121/60 Pulse Oximetry 94 100 90 Oxygen Delivery 03/30/25 21:17 03/30/25 21:30 03/30/25 21:47 Temperature 98.9 F Pulse Rate 63 67 63 Respiratory Rate 22 H 27 H 24 H Blood Pressure 123/63 Pulse Oximetry 97 98 95 Oxygen Delivery 03/30/25 23:09 03/30/25 23:43 03/31/25 00:02 Temperature 97.6 F 97.6 F 97.6 F Pulse Rate 65 65 74 Respiratory Rate 18 18 18 Blood Pressure 155/48 H 155/48 H 128/57 L Pulse Oximetry 96 96 96 Oxygen Delivery 03/31/25 01:02 03/31/25 02:02 03/31/25 03:02 Temperature 97.1 F L 97.4 F L 97.3 F L Pulse Rate 55 L 59 L 54 L Respiratory Rate 18 16 16 Blood Pressure 158/53 H 150/75 H 148/62 H Pulse Oximetry 96 94 95 Oxygen Delivery Intake/Output Intake/Output: Intake & Output 03/28/25 03/29/25 03/30/25 03/31/25 23:59 23:59 23:59 23:59 Intake Total 350 350 Balance 350 350 Meds/Results Medications: Active Medications Generic Name Dose Route Start Last Admin Trade Name Freq PRN Reason Stop Dose Admin Acetaminophen 650 mg 03/30/25 21:01 Acetaminophen 325 Mg Tablet PO Q4H PRN Mild Pain (1-3) or Fever Clonazepam 0.5 mg 03/31/25 09:00 Clonazepam (*Crx) 0.5 Mg Tablet PO BID [facility] Ferrous Sulfate 325 mg 03/31/25 09:00 Ferrous Sulfate 325 Mg Tablet PO BID [facility] Propranolol HCl 80 mg 03/31/25 09:00 Propranolol Hcl 40 Mg Tablet PO Q12HR [facility] Labs Labs: Laboratory Results - last 24 hr 03/30/25 03/31/25 03/31/25 17:18 03:26 06:13 WBC 6.1 RBC 2.21 L Hgb 5.5 L* 8.5 L D Hct 19.2 L* 27.6 L MCV 86.9 MCH 24.9 L MCHC 28.6 L RDW 17.2 H Plt Count 244 MPV 10.3 Immature Gran % (Auto) Not Reportable Neut % (Auto) Not Reportable Lymph % (Auto) Not Reportable [place] % (Auto) Not Reportable Eos % (Auto) Not Reportable Baso % (Auto) Not Reportable Lymph # (Auto) Not Reportable [place] # (Auto) Not Reportable Eos # (Auto) Not Reportable Baso # (Auto) Not Reportable Abs Immat Gran (auto) Not Reportable Absolute Neuts (auto) Not Reportable Absolute Nucleated RBC Not Reportable Total Counted 100 Neutrophils % (Manual) 80 H Band Neutrophils % 0 Lymphocytes % (Manual) 10.0 L Monocytes % (Manual) 10 H Nucleated RBC % Not Reportable Abs Neuts (Manual) 4.88 Abs Lymphs (Manual) 0.61 L Abs Monocytes (Manual) 0.61 Platelet Estimate Adequate % Immature Plt Fraction 3.7 Hypochromasia 2+ Anisocytosis 2+ Schistocytes None seen Absolute Retic 0.30 H Percent Retic 4.49 H Immature Retic Fraction 28.5 H Retic Hgb Content 16.3 L PT 15.9 H INR 1.3 APTT 32.1 Sodium 140 137 Potassium 4.0 4.0 Chloride 106 109 H Carbon Dioxide 27 22 Anion Gap 7 6 BUN 26 H 19 H Creatinine 0.86 0.73 Estim Creat Clear Calc 36 42 Estimated GFR > 60 > 60 Glucose 102 88 Calcium 9.0 8.5 Iron 26 L 96 TIBC 401 379 % Saturation 6 L 25 Transferrin 294 Ferritin 7.26 L Total Bilirubin 0.8 Direct Bilirubin Indirect Bilirubin AST 21 ALT 14 Alkaline Phosphatase 53 Lactate Dehydrogenase Total Protein 6.8 Albumin 4.1 Vitamin B12 572.0 Folate 10.7 Blood Type A Positive Antibody Screen Negative Crossmatch See Detail 03/31/25 03/31/25 03/31/25 06:13 06:13 06:13 WBC RBC Hgb Hct MCV MCH MCHC RDW Plt Count MPV Immature Gran % (Auto) Neut % (Auto) Lymph % (Auto) [place] % (Auto) Eos % (Auto) Baso % (Auto) Lymph # (Auto) [place] # (Auto) Eos # (Auto) Baso # (Auto) Abs Immat Gran (auto) Absolute Neuts (auto) Absolute Nucleated RBC Total Counted Neutrophils % (Manual) Band Neutrophils % Lymphocytes % (Manual) Monocytes % (Manual) Nucleated RBC % Abs Neuts (Manual) Abs Lymphs (Manual) Abs Monocytes (Manual) Platelet Estimate % Immature Plt Fraction Hypochromasia Anisocytosis Schistocytes Absolute Retic Percent Retic Immature Retic Fraction Retic Hgb Content PT INR APTT Sodium Potassium Chloride Carbon Dioxide Anion Gap BUN Creatinine Estim Creat Clear Calc Estimated GFR Glucose Calcium Iron TIBC % Saturation Transferrin Cancelled Ferritin Total Bilirubin 2.8 H Cancelled Direct Bilirubin Cancelled Indirect Bilirubin 2.5 H AST ALT Alkaline Phosphatase Lactate Dehydrogenase 185 Cancelled Total Protein Albumin Vitamin B12 Folate Blood Type Antibody Screen Crossmatch 03/31/25 06:14 WBC 6.7 RBC 3.39 L Hgb 9.0 L Hct 29.5 L MCV 85.8 MCH 26.3 D MCHC 30.6 L RDW 15.8 H Plt Count 194 MPV 9.8 Immature Gran % (Auto) 0.4 Neut % (Auto) 67.3 Lymph % (Auto) 20.1 [place] % (Auto) 10.3 H Eos % (Auto) 1.0 Baso % (Auto) 0.9 Lymph # (Auto) 1.35 [place] # (Auto) 0.7 H Eos # (Auto) 0.1 Baso # (Auto) 0.1 Abs Immat Gran (auto) 0.03 Absolute Neuts (auto) 4.5 Absolute Nucleated RBC 0.020 H Total Counted Neutrophils % (Manual) Band Neutrophils % Lymphocytes % (Manual) Monocytes % (Manual) Nucleated RBC % 0.3 H Abs Neuts (Manual) Abs Lymphs (Manual) Abs Monocytes (Manual) Platelet Estimate % Immature Plt Fraction Hypochromasia Anisocytosis Schistocytes Absolute Retic Percent Retic Immature Retic Fraction Retic Hgb Content PT INR APTT Sodium Potassium Chloride Carbon Dioxide Anion Gap BUN Creatinine Estim Creat Clear Calc Estimated GFR Glucose Calcium Iron TIBC % Saturation Transferrin Ferritin Total Bilirubin Direct Bilirubin Indirect Bilirubin AST ALT Alkaline Phosphatase Lactate Dehydrogenase Total Protein Albumin Vitamin B12 Folate Blood Type Antibody Screen Crossmatch Quality VTE Prophylaxis VTE prophylaxis: mechanical ordered
[2025-03-31 07:21] LABS: Percent Iron Saturation 26 % (20-50)
[2025-03-31 08:18] LABS: Thyroid Stimulating Hormone Reflex 1.440 uIU/mL (0.465-4.68)
[2025-03-31] MEDS: PROPRANOLOL HCL 40 MG TABLET 80 MG PO ×2 (08:27→20:23)
[2025-03-31] MEDS: clonazePAM (*CRX) 0.5 MG TABLET PO ×2 (08:27→16:45)
[2025-03-31] MEDS: FERROUS SULFATE 325 MG TABLET PO ×2 (08:27→16:45)
[2025-03-31 11:52] LABS: Hematocrit 28.6 % (37.0-47.0); Hemoglobin 8.8 g/dL (12.0-15.0)
[2025-03-31 13:21] LABS: Hepatitis B Surface Antigen Negative (Negative)
[2025-03-31 13:27] LABS: HAV RESULT Negative (Negative); Hepatitis B Core IgM Result Negative (Negative)
[2025-03-31 14:37] LABS: Cholesterol 75 mg/dL (0-200); HDL Direct 35 mg/dL; Triglycerides 50 mg/dL (<150)
[2025-03-31 15:09] LABS: IFOB Positive Control Positive; Immunochemical Fecal Occult Bl Negative (N)
[2025-03-31 15:50] LABS: Hematocrit 29.0 % (37.0-47.0); Hemoglobin 9.0 g/dL (12.0-15.0)
--- NOTE | 2025-03-31 16:24 | WPDONCCN ---
Assessment and Plan Assessment and plan (1) Anemia: Code(s): D64.9 - Anemia, unspecified Status: Acute (2) Rheumatoid arthritis: Code(s): M06.9 - Rheumatoid arthritis, unspecified Status: Acute (3) Dyslipidemia: Code(s): E78.5 - Hyperlipidemia, unspecified Status: Acute (4) Anxiety: Code(s): F41.9 - Anxiety disorder, unspecified Status: Acute Plan Review peripheral smear. Called lab; unclear when smear will be made this evening. Lab results with elevated retic and indirect bili suggest hemolysis but the nl LDH doesn't fit. The Beverly test may miss low affinity Ab like IgA and IgM. Cold agglutinin disease can present like this as well as can infections and inherited abnl such as spherocytosis. Further recommendations to be made once smear is evaluated. HPI Data of Consult Date/Time: 03/31/25 16:24 Requesting Physician: Pio Bennett DO Primary Care Provider: Lyla Maria PA-C Consult Narrative Narrative: Ana Paula Calvillo is a 74 year old female who was found to have severe anemia with a Hgb 5.5 / Hct 19.9 by her PCP. The patient reports that she was asymptomatic. She was admitted to the hospital. Of note, the patient had a blood transfusion in 10/2023 and again in 06/2024 for anemia of unclear etiology. She had an EGD and colonoscopy that were apparently unrevealing. S/P 2 units PRBCs --> H/H 8.5/27.6. The patient was begun on ferrous sulfate. Labs: (03/30/25); retic 4.49% (03/31/25): total bili 2.8, indirect bili 2.5. LDH 185. Beverly (D+I) neg. Hemoccult stools neg. CT abd/pelvis (03/31/25): No acute findings Suspected liver cirrhosis Plan: Review peripheral smear. Called lab; unclear when smear will be made this evening. Lab results with elevated retic and indirect bili suggest hemolysis but the nl LDH doesn't fit. The Beverly test may miss low affinity Ab like IgA and IgM. Cold agglutinin disease can present like this as well as can infections and inherited abnl such as spherocytosis. Further recommendations to be made once smear is evaluated. Thank you. 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 She lives with her . She is retired. She has 3 children. Code status: Full code Smoking packs per day: 1 Smoking cigarettes per day: 20.0 Years smoked: 55 Smoking pack-years: 55.00 Smoking status: Former smoker Tobacco type: cigarettes Second hand tobacco smoke exposure: No Smoking end date: 05/14/22 Alcohol intake: never Drinks per week: 0 Substance use: never Substance use type: does not use Do You Feel Safe in your Home?: Yes Lack of Transportation: No Lack of Food: Never True Current Housing: I Have Housing Concerned About Future Housing: No Difficulty Paying Gas/Electric Bills: No Difficulty Paying for Meds: No Currently Unemployed: No Education: High School Diploma/GED Difficulty w/ Childcare or Family Care: No Living arrangements: with family Occupation/Education: retired Gender identity (if verbalized by the patient): Female Sexual Orientation (if Verbalized by the Patient): Straight or Heterosexual Spiritual care concerns: No Meds Home Medications and Allergies Home Medications ?Medication ?Instructions ?Recorded ?Confirmed ?Type atorvastatin 20 mg tablet 20 mg PO DAILY 03/23/21 03/30/25 History Held on 07/14/24. Instructions: Patient no longer taking ascorbic acid (vitamin C) 100 mg 100 mg PO DAILY 07/22/24 03/30/25 History tablet ferrous sulfate 325 mg (65 mg 325 mg PO DAILY 07/22/24 03/30/25 History iron) tablet clonazepam 0.5 mg tablet 0.5 mg PO BID #180 tabs 01/23/25 03/30/25 Rx ketoconazole 2 % topical cream 1 applic topical BID #60 grams 01/23/25 03/30/25 Rx Held on 03/30/25. Instructions: Patient no longer taking propranolol 80 mg tablet 80 mg PO BID #180 tabs 01/23/25 03/30/25 Rx pantoprazole 40 mg tablet,delayed 40 mg PO DAILY #30 tabs 03/30/25 03/30/25 Rx release (Protonix) Allergies Allergy/AdvReac Type Severity Reaction Status Date / Time prednisone AdvReac Intermediate Irritable Verified 03/30/25 22:38 Vital Signs Vital Signs - 24 hr 03/30/25 17:14 03/30/25 19:57 03/30/25 20:01 Temperature 36.9 C Pulse Rate 72 71 69 Respiratory Rate 16 26 H 20 Blood Pressure 100/52 L 115/54 L 127/55 L Pulse Oximetry 95 96 95 Oxygen Delivery 03/30/25 20:16 03/30/25 20:17 03/30/25 20:43 Temperature 37.0 C 37.3 C Pulse Rate 73 71 73 Respiratory Rate 17 20 21 H Blood Pressure 135/61 135/61 122/53 L Pulse Oximetry 95 96 96 Oxygen Delivery 03/30/25 20:44 03/30/25 20:46 03/30/25 20:47 Temperature Pulse Rate 71 70 71 Respiratory Rate 31 H 29 H 30 H Blood Pressure 122/53 L 116/59 L Pulse Oximetry 96 97 94 Oxygen Delivery 03/30/25 21:00 03/30/25 21:01 03/30/25 21:17 Temperature Pulse Rate 68 65 63 Respiratory Rate 37 H 33 H 22 H Blood Pressure 121/60 Pulse Oximetry 100 90 97 Oxygen Delivery 03/30/25 21:30 03/30/25 21:47 03/30/25 23:09 Temperature 37.2 C 36.4 C Pulse Rate 67 63 65 Respiratory Rate 27 H 24 H 18 Blood Pressure 123/63 155/48 H Pulse Oximetry 98 95 96 Oxygen Delivery 03/30/25 23:43 03/31/25 00:02 03/31/25 01:02 Temperature 36.4 C 36.4 C 36.2 C L Pulse Rate 65 74 55 L Respiratory Rate 18 18 18 Blood Pressure 155/48 H 128/57 L 158/53 H Pulse Oximetry 96 96 96 Oxygen Delivery 03/31/25 02:02 03/31/25 03:02 03/31/25 06:22 Temperature 36.3 C L 36.3 C L 36.2 C L Pulse Rate 59 L 54 L 59 L Respiratory Rate 16 16 16 Blood Pressure 150/75 H 148/62 H 147/68 H Pulse Oximetry 94 95 94 Oxygen Delivery 03/31/25 08:00 03/31/25 08:27 03/31/25 13:51 Temperature 37.0 C Pulse Rate 64 59 L Respiratory Rate 16 Blood Pressure 123/53 L Pulse Oximetry 94 97 Oxygen Delivery Room Air Exam Const: Other: Well groomed female HENMT: Other: No oral lesions Resp: Other: Bilateral air entry. Cardio: Other: RRR GI: Other: Soft, NT, BS nl. Skin: Other: No rash Neuro: Other: Alert and awake. Grossly nonfocal. Psych: Other: Normal affect Results Labs 03/31/25 15:42 03/31/25 06:13 Labs: Short CBC 03/30/25 03/31/25 03/31/25 Range/Units 17:18 03:26 06:14 WBC 6.1 6.7 (4.5-10.0) K/mm3 Hgb 5.5 L* 8.5 L D 9.0 L (12.0-15.0) g/dL Hct 19.2 L* 27.6 L 29.5 L (37.0-47.0) % Plt Count 244 194 (150-375) k/mm3 03/31/25 03/31/25 Range/Units 11:46 15:42 WBC (4.5-10.0) K/mm3 Hgb 8.8 L 9.0 L (12.0-15.0) g/dL Hct 28.6 L 29.0 L (37.0-47.0) % Plt Count (150-375) k/mm3 BMP 03/30/25 03/31/25 17:18 06:13 Sodium 140 137 Potassium 4.0 4.0 Chloride 106 109 H Carbon Dioxide 27 22 BUN 26 H 19 H Creatinine 0.86 0.73 Glucose 102 88 Calcium 9.0 8.5 Liver Function 03/30/25 03/31/25 03/31/25 Range/Units 17:18 06:13 06:13 Total Bilirubin 0.8 2.8 H Cancelled (0.2-1.3) mg/dL Direct Bilirubin Cancelled AST 21 (14-36) U/L ALT 14 (6-35) U/L Alkaline Phosphatase 53 (38-126) U/L Albumin 4.1 (3.5-5.1) g/dL
[2025-04-01 05:27] VITALS: BP 124/50; PULSE 54; RESP 16; TEMP 36.6; O2SAT 97
[2025-04-01 06:35] LABS: Hematocrit 28.9 % (37.0-47.0); Hemoglobin 8.9 g/dL (12.0-15.0); Immature Granulocyte Percent A 0.2 % (0-0.5); Lymphocytes Absolute Auto 1.34 K/mm3 (0.9-3.2); Mean Corpuscular HGB Conc 30.8 g/dl (32-36); Mean Corpuscular Hemoglobin 26.1 pg (26-34); Mean Corpuscular Volume 84.8 fl (80-100); Nucleated Red Blood Cells Absolute Auto 0.000 K/mm3 (0.0-0.012); Nucleated Red Blood Cells Perc 0.0 % (0.0-0.2); Platelet Count Result 203 k/mm3 (150-375); Red Blood Count 3.41 M/mm3 (4.2-5.4); White Blood Count 5.7 K/mm3 (4.5-10.0)
[2025-04-01 06:58] LABS: Anion Gap 4 mmol/L (4-12); Blood Urea Nitrogen 10 mg/dL (7-17); Calcium 8.5 mg/dL (8.4-10.2); Carbon Dioxide 25 mmol/L (22-30); Chloride 107 mmol/L (98-107); Estimated CRCL calculation 39 ml/min; Estimated Glomerular Filt Rate > 60; Glucose 86 mg/dL (65-110); Potassium 4.0 mmol/L (3.4-5.0); Sodium 136 mmol/L (137-145)
--- NOTE | 2025-04-01 08:22 | WPDONCPN ---
Subjective Date/time seen: 04/01/25 08:22 Interval history: 03/31/25: Ana Paula Calvillo is a 74 year old female who was found to have severe anemia with a Hgb 5.5 / Hct 19.9 by her PCP. The patient reports that she was asymptomatic. She was admitted to the hospital. Of note, the patient had a blood transfusion in 10/2023 and again in 06/2024 for anemia of unclear etiology. She had an EGD and colonoscopy that were apparently unrevealing. S/P 2 units PRBCs --> H/H 8.5/27.6. The patient was begun on ferrous sulfate. Labs: (03/30/25); retic 4.49% (03/31/25): total bili 2.8, indirect bili 2.5. LDH 185. Beverly (D+I) neg. Hemoccult stools neg. CT abd/pelvis (03/31/25): No acute findings Suspected liver cirrhosis 04/01/25: Patient feeling well. She wants to go home. She is having no fevers, chills, SOB or SP. No abdominal pain, change in BMs, melena or hematochezia. No dysuria or hematuria. Labs: (04/01/25): WBC 5.7, Hgb 8.9, Hct 28.9, Plt 203, RDW 16.1, BUN 10, crea 0.79 Reviewed peripheral smear from yesterday: It looks relatively unremarkable. No schistocyes or spherocytes seen. Very occasional nRBCs. Occasional reactive lymphs. Neutrophils look normal with no increase in bands, no toxic granulations and no hypersegmentation. Normal plt count with occasional large platelets. Plan: Lab results with elevated retic and indirect bili suggest hemolysis but the nl LDH doesn't fit. Will redraw retic, bili (D+I), LDH. If labs suggest hemolysis, will have lab perform Beverly test for low affinity Ab like IgA and IgM. Still unclear why she requires blood transfusions only once every 8 months. Okay to discharge. Would like to repeat labs once the transfused blood products are out of her system. Peripiheral smear that was reviewed from yesterday was after her blood transfusion; thus, results may not have been completely accurate. Please schedule f/u with Hematology (Dr. Kirkpatrick) one month post discharge. Thank you. Exam Const: Other: Well appearing female Eyes: Other: Anicteric sclerae Resp: Other: Bilateral air entry with no wheezing Cardio: Other: RRR GI: Other: Soft, NT. BS nl. Skin: Other: No hematomas Neuro: Other: Alert and awake. Grossly nonfocal Extrem: Other: No c/c/e Psych: Other: Affect normal Objective Data Vital Signs Vital Signs: Vital Signs - 24 hr 03/31/25 08:27 03/31/25 13:51 03/31/25 20:22 Temperature 37.0 C 36.4 C L Pulse Rate 64 59 L 58 L Respiratory Rate 16 16 Blood Pressure 123/53 L 126/58 L Pulse Oximetry 97 96 Oxygen Delivery 03/31/25 21:48 04/01/25 05:27 Temperature 36.6 C Pulse Rate 54 L Respiratory Rate 16 Blood Pressure 124/50 L Pulse Oximetry 96 97 Oxygen Delivery Autopap Intake/Output Intake/Output: Intake & Output 03/29/25 03/30/25 03/31/25 04/01/25 23:59 23:59 23:59 23:59 Intake Total 350 2007 Output Total 0 Balance 350 2007 0 Meds/Results Medications: Active Medications Generic Name Dose Route Start Last Admin Trade Name Freq PRN Reason Stop Dose Admin Acetaminophen 650 mg 03/30/25 21:01 Acetaminophen 325 Mg Tablet PO Q4H PRN Mild Pain (1-3) or Fever Clonazepam 0.5 mg 03/31/25 09:00 03/31/25 16:45 Clonazepam (*Crx) 0.5 Mg Tablet PO 0.5 mg BID KAYLYN Administration Ferrous Sulfate 325 mg 03/31/25 09:00 03/31/25 16:45 Ferrous Sulfate 325 Mg Tablet PO 325 mg BID KAYLYN Administration Propranolol HCl 80 mg 03/31/25 09:00 03/31/25 20:23 Propranolol Hcl 40 Mg Tablet PO 80 mg Q12HR KAYLYN Administration Radiology Results: ITS Impressions Abdomen/Pelvis CT 03/31/25 08:58 IMPRESSION: 1. No acute findings. 2. Cirrhosis. Labs Labs: Laboratory Results - last 24 hr 03/31/25 03/31/25 03/31/25 03:26 06:13 06:36 WBC RBC Hgb Hct MCV MCH MCHC RDW Plt Count MPV Immature Gran % (Auto) Neut % (Auto) Lymph % (Auto) [place] % (Auto) Eos % (Auto) Baso % (Auto) Lymph # (Auto) [place] # (Auto) Eos # (Auto) Baso # (Auto) Abs Immat Gran (auto) Absolute Neuts (auto) Absolute Nucleated RBC Nucleated RBC % Haptoglobin 31 L Sodium Potassium Chloride Carbon Dioxide Anion Gap BUN Creatinine Estim Creat Clear Calc Estimated GFR Glucose Calcium Triglycerides 50 Cholesterol 75 LDL Cholesterol Direct 34 HDL Direct 35 Ur Random Creatinine U Random Total Protein Protein/Creatinin Ratio Urine Albumin U Uwlhm-8-Lccvpwkh U Yrxnr-1-Psezqdts U Beta Globulin U Gamma Globulin U Abnormal Prot Band 1 U Abnormal Prot Band 2 U Abnormal Prot Band 3 Urine PEP Interpret Stl Occult Blood (IFOB) Hepatitis A IgM Ab Negative Hep Bs Antigen Negative Hep B Core IgM Ab Negative Hepatitis C Ab Screen Negative JOEY, IgG Interpret Neg JOEY, Poly Interpret Negative Indirect Antiglob Test Negative 03/31/25 03/31/25 03/31/25 11:46 13:08 14:06 WBC RBC Hgb 8.8 L Hct 28.6 L MCV MCH MCHC RDW Plt Count MPV Immature Gran % (Auto) Neut % (Auto) Lymph % (Auto) [place] % (Auto) Eos % (Auto) Baso % (Auto) Lymph # (Auto) [place] # (Auto) Eos # (Auto) Baso # (Auto) Abs Immat Gran (auto) Absolute Neuts (auto) Absolute Nucleated RBC Nucleated RBC % Haptoglobin Sodium Potassium Chloride Carbon Dioxide Anion Gap BUN Creatinine Estim Creat Clear Calc Estimated GFR Glucose Calcium Triglycerides Cholesterol LDL Cholesterol Direct HDL Direct Ur Random Creatinine Cancelled U Random Total Protein Cancelled Protein/Creatinin Ratio Cancelled Urine Albumin Cancelled U Untqj-7-Zkqwetps Cancelled U Wfqsg-4-Elidgnrb Cancelled U Beta Globulin Cancelled U Gamma Globulin Cancelled U Abnormal Prot Band 1 Cancelled U Abnormal Prot Band 2 Cancelled U Abnormal Prot Band 3 Cancelled Urine PEP Interpret Cancelled Stl Occult Blood (IFOB) Negative Hepatitis A IgM Ab Hep Bs Antigen Hep B Core IgM Ab Hepatitis C Ab Screen JOEY, IgG Interpret JOEY, Poly Interpret Indirect Antiglob Test 03/31/25 04/01/25 15:42 05:49 WBC 5.7 RBC 3.41 L Hgb 9.0 L 8.9 L Hct 29.0 L 28.9 L MCV 84.8 MCH 26.1 MCHC 30.8 L RDW 16.1 H Plt Count 203 MPV 10.5 H Immature Gran % (Auto) 0.2 Neut % (Auto) 62.6 Lymph % (Auto) 23.4 Irwin % (Auto) 11.0 H Eos % (Auto) 1.9 Baso % (Auto) 0.9 Lymph # (Auto) 1.34 [place]win # (Auto) 0.6 Eos # (Auto) 0.1 Baso # (Auto) 0.1 Abs Immat Gran (auto) 0.01 Absolute Neuts (auto) 3.6 Absolute Nucleated RBC 0.000 Nucleated RBC % 0.0 Haptoglobin Sodium 136 L Potassium 4.0 Chloride 107 Carbon Dioxide 25 Anion Gap 4 BUN 10 D Creatinine 0.79 Estim Creat Clear Calc 39 Estimated GFR > 60 Glucose 86 Calcium 8.5 Triglycerides Cholesterol LDL Cholesterol Direct HDL Direct Ur Random Creatinine U Random Total Protein Protein/Creatinin Ratio Urine Albumin U Jjekd-2-Jjpwtdyu U Hmnun-5-Kcoszxoa U Beta Globulin U Gamma Globulin U Abnormal Prot Band 1 U Abnormal Prot Band 2 U Abnormal Prot Band 3 Urine PEP Interpret Stl Occult Blood (IFOB) Hepatitis A IgM Ab Hep Bs Antigen Hep B Core IgM Ab Hepatitis C Ab Screen JOEY, IgG Interpret JOEY, Poly Interpret Indirect Antiglob Test
[2025-04-01 09:36] LABS: Immature Reticulocyte Fraction 34.5 % (3.0-15.9); Reticulocyte Hemoglobin Conten 18.4 pg (28.2-36.6); Reticulocytes Absolute 0.13 10^6/uL (0.02-0.10)
[2025-04-01 09:42] VITALS: PULSE 59; O2SAT 98
[2025-04-01] MEDS: FERROUS SULFATE 325 MG TABLET PO (09:42)
[2025-04-01] MEDS: clonazePAM (*CRX) 0.5 MG TABLET PO (09:42)
[2025-04-01] MEDS: PROPRANOLOL HCL 40 MG TABLET 80 MG PO (09:42)
--- NOTE | 2025-04-01 11:22 | P.DS_ITS ---
DS: Admitting Diagnosis Discharge Date 04/01/25 Admitting Diagnosis Acute anemia DS: Discharge Diagnosis Discharge Diagnosis (1) Anemia: Code(s): D64.9 - Anemia, unspecified Status: Acute DS: Summary Hospital Course Reason for hospitalization: Acute anemia Hospital Course: 74-year-old female patient who has a history of anemia. She has had a full GI workup and stated that she only has hemorrhoids. Presented with a hemoglobin of 5.5, patient was referred to the ER. Patient does not take any anticoagulation. Received 2 units of PRBC with adequate response. Oncology was consulted. Advised to have outpatient follow-up with Hematology/Oncology in 1 month for further workup regarding anemia. Patient is being discharged home in stable condition. Time Spent with Patient Time attestation: Total time spent providing and/or coordinating discharge services:34 mins Exam Const: General: cooperative, comfortable and no acute distress Orientation/consciousness: patient oriented x3 HENMT: Head: normal to inspection Eyes: General: appearance normal, both eyes and all related structures Neck: Neck: normal visual inspection Resp: Auscultation: clear to auscultation bilaterally Cardio: Rate: regular rate Rhythm: regular rhythm GI: Inspection: normal to inspection Auscultation: normal bowel sounds Skin: General skin exam: normal color Neuro: General: patient oriented x3 Other: Essential tremor Extrem: General: normal to inspection Psych: Appearance: grossly normal Mental Status: mental status grossly normal DS: Data Data Completed and Pending Labs on day of discharge: Labs from last 24 hours 04/01/25 04/01/25 03/31/25 05:49 05:46 15:42 WBC 5.7 RBC 3.41 L Hgb 8.9 L 9.0 L Hct 28.9 L 29.0 L MCV 84.8 MCH 26.1 MCHC 30.8 L RDW 16.1 H Plt Count 203 MPV 10.5 H Immature Gran % (Auto) 0.2 Neut % (Auto) 62.6 Lymph % (Auto) 23.4 [place] % (Auto) 11.0 H Eos % (Auto) 1.9 Baso % (Auto) 0.9 Lymph # (Auto) 1.34 [place] # (Auto) 0.6 Eos # (Auto) 0.1 Baso # (Auto) 0.1 Abs Immat Gran (auto) 0.01 Absolute Neuts (auto) 3.6 Absolute Nucleated RBC 0.000 Nucleated RBC % 0.0 Absolute Retic 0.13 H Percent Retic 3.85 Immature Retic Fraction 34.5 H Retic Hgb Content 18.4 L Haptoglobin Sodium 136 L Potassium 4.0 Chloride 107 Carbon Dioxide 25 Anion Gap 4 BUN 10 D Creatinine 0.79 Estim Creat Clear Calc 39 Estimated GFR > 60 Glucose 86 Calcium 8.5 Indirect Bilirubin 1.6 H Lactate Dehydrogenase 176 Triglycerides Cholesterol LDL Cholesterol Direct HDL Direct Ur Random Creatinine U Random Total Protein Protein/Creatinin Ratio Urine Total Protein Urine Albumin (PEP) Urine Albumin U Zvogq-7-Saipdolx U Kdmis-3-Jdgbyqnk U Beta Globulin U Gamma Globulin U Random M-Rodrigo (%) U Abnormal Prot Band 1 U Abnormal Prot Band 2 U Abnormal Prot Band 3 Urine PEP Interpret Stl Occult Blood (IFOB) Hepatitis A IgM Ab Hep Bs Antigen Hep B Core IgM Ab Hepatitis C Ab Screen 03/31/25 03/31/25 03/31/25 14:06 14:06 14:06 WBC RBC Hgb Hct MCV MCH MCHC RDW Plt Count MPV Immature Gran % (Auto) Neut % (Auto) Lymph % (Auto) [place] % (Auto) Eos % (Auto) Baso % (Auto) Lymph # (Auto) [place] # (Auto) Eos # (Auto) Baso # (Auto) Abs Immat Gran (auto) Absolute Neuts (auto) Absolute Nucleated RBC Nucleated RBC % Absolute Retic Percent Retic Immature Retic Fraction Retic Hgb Content Haptoglobin Sodium Potassium Chloride Carbon Dioxide Anion Gap BUN Creatinine Estim Creat Clear Calc Estimated GFR Glucose Calcium Indirect Bilirubin Lactate Dehydrogenase Triglycerides Cholesterol LDL Cholesterol Direct HDL Direct Ur Random Creatinine U Random Total Protein Protein/Creatinin Ratio Urine Total Protein Urine Albumin (PEP) Urine Albumin U Mdbks-3-Bbijtsui U Xusuc-0-Kbxfzncg Pending U Beta Globulin Pending Cancelled U Gamma Globulin Pending Cancelled U Random M-Rodrigo (%) Pending U Abnormal Prot Band 1 Cancelled U Abnormal Prot Band 2 Cancelled U Abnormal Prot Band 3 Cancelled Urine PEP Interpret Cancelled Stl Occult Blood (IFOB) Hepatitis A IgM Ab Hep Bs Antigen Hep B Core IgM Ab Hepatitis C Ab Screen 03/31/25 03/31/25 03/31/25 14:06 14:06 13:08 WBC RBC Hgb Hct MCV MCH MCHC RDW Plt Count MPV Immature Gran % (Auto) Neut % (Auto) Lymph % (Auto) [place] % (Auto) Eos % (Auto) Baso % (Auto) Lymph # (Auto) [place] # (Auto) Eos # (Auto) Baso # (Auto) Abs Immat Gran (auto) Absolute Neuts (auto) Absolute Nucleated RBC Nucleated RBC % Absolute Retic Percent Retic Immature Retic Fraction Retic Hgb Content Haptoglobin Sodium Potassium Chloride Carbon Dioxide Anion Gap BUN Creatinine Estim Creat Clear Calc Estimated GFR Glucose Calcium Indirect Bilirubin Lactate Dehydrogenase Triglycerides Cholesterol LDL Cholesterol Direct HDL Direct Ur Random Creatinine Cancelled U Random Total Protein Cancelled Protein/Creatinin Ratio Cancelled Urine Total Protein Pending Urine Albumin (PEP) Pending Urine Albumin Cancelled U Tcxto-6-Yzlbsydr Pending Cancelled U Fzjqm-3-Kwoayzex Cancelled U Beta Globulin U Gamma Globulin U Random M-Rodrigo (%) U Abnormal Prot Band 1 U Abnormal Prot Band 2 U Abnormal Prot Band 3 Urine PEP Interpret Stl Occult Blood (IFOB) Negative Hepatitis A IgM Ab Hep Bs Antigen Hep B Core IgM Ab Hepatitis C Ab Screen 03/31/25 03/31/25 03/31/25 11:46 06:36 06:13 WBC RBC Hgb 8.8 L Hct 28.6 L MCV MCH MCHC RDW Plt Count MPV Immature Gran % (Auto) Neut % (Auto) Lymph % (Auto) [place] % (Auto) Eos % (Auto) Baso % (Auto) Lymph # (Auto) [place] # (Auto) Eos # (Auto) Baso # (Auto) Abs Immat Gran (auto) Absolute Neuts (auto) Absolute Nucleated RBC Nucleated RBC % Absolute Retic Percent Retic Immature Retic Fraction Retic Hgb Content Haptoglobin 31 L Sodium Potassium Chloride Carbon Dioxide Anion Gap BUN Creatinine Estim Creat Clear Calc Estimated GFR Glucose Calcium Indirect Bilirubin Lactate Dehydrogenase Triglycerides 50 Cholesterol 75 LDL Cholesterol Direct 34 HDL Direct 35 Ur Random Creatinine U Random Total Protein Protein/Creatinin Ratio Urine Total Protein Urine Albumin (PEP) Urine Albumin U Jmykr-7-Kxwtinwl U Swyat-9-Wdpuystb U Beta Globulin U Gamma Globulin U Random M-Rodrigo (%) U Abnormal Prot Band 1 U Abnormal Prot Band 2 U Abnormal Prot Band 3 Urine PEP Interpret Stl Occult Blood (IFOB) Hepatitis A IgM Ab Hep Bs Antigen Hep B Core IgM Ab Hepatitis C Ab Screen 03/31/25 03:26 WBC RBC Hgb Hct MCV MCH MCHC RDW Plt Count MPV Immature Gran % (Auto) Neut % (Auto) Lymph % (Auto) [place] % (Auto) Eos % (Auto) Baso % (Auto) Lymph # (Auto) [place] # (Auto) Eos # (Auto) Baso # (Auto) Abs Immat Gran (auto) Absolute Neuts (auto) Absolute Nucleated RBC Nucleated RBC % Absolute Retic Percent Retic Immature Retic Fraction Retic Hgb Content Haptoglobin Sodium Potassium Chloride Carbon Dioxide Anion Gap BUN Creatinine Estim Creat Clear Calc Estimated GFR Glucose Calcium Indirect Bilirubin Lactate Dehydrogenase Triglycerides Cholesterol LDL Cholesterol Direct HDL Direct Ur Random Creatinine U Random Total Protein Protein/Creatinin Ratio Urine Total Protein Urine Albumin (PEP) Urine Albumin U Gniri-4-Njwfpxry U Zftsw-7-Bbswirye U Beta Globulin U Gamma Globulin U Random M-Rodrigo (%) U Abnormal Prot Band 1 U Abnormal Prot Band 2 U Abnormal Prot Band 3 Urine PEP Interpret Stl Occult Blood (IFOB) Hepatitis A IgM Ab Negative Hep Bs Antigen Negative Hep B Core IgM Ab Negative Hepatitis C Ab Screen Negative Discharge Plan Discharge Attending physician on discharge: Yesenia Lua Consulting providers: Shaam Penny; iBb Kirkpatrick Discharging Clinician: Yesenia Lua Anticipated Discharge Date/Time: 04/01/25 11:21 Patient Disposition: Home Activity: as tolerated Diet: regular Patient Instructions: Antibiotic Form Patient Language: Amharic Stand Alone Forms: General Discharge Information Follow-up/Referrals: Bib Kirkpatrick MD [Physician, Hematology] - 4 Weeks Lyla Maria PA-C [Primary Care Provider, Family Practice] - 2 Weeks Discharge Medications: Continued ascorbic acid (vitamin C) 100 mg tablet 100 mg PO DAILY Rx Instructions: D/C after 30 days (08/14/24) ferrous sulfate 325 mg (65 mg iron) tablet 325 mg PO DAILY Rx Instructions: D/C after 30 days (08/14/24) propranolol 80 mg tablet 80 mg PO BID Qty: 180 1RF clonazepam 0.5 mg tablet 0.5 mg PO BID Qty: 180 1RF ketoconazole 2 % cream 1 applic topical BID Qty: 60 0RF atorvastatin 20 mg tablet 20 mg PO DAILY pantoprazole [Protonix] 40 mg tablet,delayed release (DR/EC) 40 mg PO DAILY Qty: 30 1RF Date of admission: 03/30/25 21:01 Primary Care Provider: Lyla Maria Admitting Provider: Hallie Bennett Attending physician on admission: Hallie Bennett Condition: Improved
[2025-04-02 15:09] LABS: Albumin, U 46.1 % (.); Alpha-1-Globulin, U 4.4 % (.); Alpha-2-Globulin, U 9.6 % (.); Beta Globulin, U 26.7 % (.); Gamma Globulin, U 13.2 % (.)
== END 2025-04-01 12:40 | disposition home or self-care (01) ==
LOC: ANHED 21:15 → ANH3MEDSUR 03-31 07:09
PROVIDERS: Internal Medicine Hematology & Oncology; Nurse Practitioner; Physician Assistant; Admitting Provider Student in an Organized Health Care Education/Training Program; Emergency Provider Emergency Medicine; PCP Physician Assistant Medical; Visit Provider Internal Medicine
DX: D64.9 Anemia, unspecified (principal); E78.5 Hyperlipidemia, unspecified; R01.1 Cardiac murmur, unspecified; F41.9 Anxiety disorder, unspecified; K74.60 Unspecified cirrhosis of liver; M06.9 Rheumatoid arthritis, unspecified; G25.0 Essential tremor; Z87.891 Personal history of nicotine dependence; Z87.11 Personal history of peptic ulcer disease; Z86.79 Personal history of other diseases of the circulatory system; Z98.3 Post therapeutic collapse of lung status; Z85.828 Personal history of other malignant neoplasm of skin; Z82.3 Family history of stroke; Z80.3 Family history of malignant neoplasm of breast
CPT/HCPCS: 36415; 36430; 74177; 80048; 80053; 80061; 80074; 82247; 82274; 82607; 82728; 82746; 83010; 83540; 83550; 83615; 84156; 84166; 84238; 84443; 84466; 85014; 85018; 85025; 85046; 85055; 85610; 85730; 86850; 86880; 86900; 86901; 86923; 99285; A9270; G0378; J7050; P9016; Q9967